=== PATIENT | male | born 1930 | race Caucasian/White ===

== ENCOUNTER 2020-03-08 15:28 | Inpatient (IN) | payer MEDICARE, BC ==
--- NOTE | 2020-03-08 15:59 | EDM.PDOC ---
ED HPI GENERAL MEDICAL PROBLEM - General Chief Complaint: Respiratory Problem Stated Complaint: SHORTNESS OF BREATH/WEAKNESS Time Seen by Provider: 03/08/20 15:30 Source of Information: Reports: Patient, EMS, RN History Limitations: Reports: No Limitations - History of Present Illness INITIAL COMMENTS - FREE TEXT/NARRATIVE: 89 year old male presents to the emergency room brought in by his niece for evaluation of generalized weakness, mild shortness of breath, possible dehydration. Patient has been poor fluid intake over the last 48 hours and has developed increasing weakness. 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 He has been recovering at home with family in [place]. Currently denies fever or chill, cough, chest pain, palpations, abdominal pain. He denies any current nausea or vomiting. His O2 saturation was 88% on room air upon arrival and 2 L of oxygen was placed nasal cannulae and he increased nicely up to 94%. He has not been diaphoretic. Onset: Gradual Duration: Day(s):, Getting Worse Location: Reports: Generalized Quality: Reports: Dull Severity: Moderate Improves with: Reports: Rest Worsens with: Reports: Movement Associated Symptoms: Reports: Shortness of Breath. Denies: Confusion, Chest Pain, Diaphoresis, Fever/Chills, Headaches, Nausea/Vomiting Right Knee Pain Score (Numeric/FACES): 7 - Related Data Allergies Allergy/AdvReac Type Severity Reaction Status Date / Time No Known Allergies Allergy Verified 03/08/20 15:55 Home Meds: Home Meds Albuterol/Ipratropium [Combivent Respimat] 1 puff INH DAILY PRN 11/27/13 [History] Aspirin 81 mg PO DAILY 11/27/13 [History] B2/Vits A,C,E/Lut/Zeaxanth/Min [Icaps] 1 tab PO BID 11/27/13 [History] Fluticasone Propionate [Flovent] 2 sprays NASBOTH DAILY 11/27/13 [History] Furosemide [Lasix] 80 mg PO ASDIRECTED 11/27/13 [History] Lisinopril 40 mg PO DAILY 11/27/13 [History] Fluticasone/Salmeterol [Advair HFA 230-21 MCG] 2 puff INH BID 06/20/18 [History] allopurinoL [Zyloprim] 200 mg PO DAILY 06/20/18 [History] Albuterol/Ipratropium [Combivent Respimat] 20 - 100 mcg IH QID PRN 03/08/20 [History] Clopidogrel Bisulfate [Plavix] 75 mg PO DAILY 03/08/20 [History] Docusate Sodium [Colace] 100 mg PO ASDIRECTED PRN 03/08/20 [History] Rosuvastatin [Crestor] 10 mg PO DAILY 03/08/20 [History] amLODIPine Besylate [Norvasc] 10 mg PO DAILY 03/08/20 [History] polyethylene glycoL 3350 [MiraLAX] 17 gm PO DAILY PRN 03/08/20 [History] traMADol [Ultram] 50 mg PO TID PRN 03/08/20 [History] Past Medical History HEENT History: Reports: Cataract Other HEENT History: glasses, upper and lower dentures Cardiovascular History: Reports: Heart Murmur, High Cholesterol, Hypertension Respiratory History: Reports: Asthma (severity depends on pollen count), COPD, Sleep Apnea (uses CPAP), SOB Gastrointestinal History: Reports: Colon Polyp Genitourinary History: Reports: Chronic Renal Insuffiency Musculoskeletal History: Reports: Osteoarthritis Neurological History: Reports: None Psychiatric History: Reports: None Endocrine/Metabolic History: Reports: Diabetes, Type II, Obesity/BMI 30+ (BMI 42.3) Hematologic History: Reports: None Immunologic History: Reports: None Oncologic (Cancer) History: Reports: None Dermatologic History: Reports: None - Infectious Disease History Infectious Disease History: Reports: Chicken Pox, Mumps - Past Surgical History Head Surgeries/Procedures: Reports: None HEENT Surgical History: Reports: Eye Surgery, Naso-Sinus Surgery, Oral Surgery GI Surgical History: Reports: Colonoscopy Oncologic Surgical History: Reports: None Dermatological Surgical History: Reports: None Social & Family History - Family History Family Medical History: No Pertinent Family History - Caffeine Use Caffeine Use: Reports: Coffee - Living Situation & Occupation Living situation: Reports: Alone Occupation: Retired [employer] GENERAL - Review of Systems Review Of Systems: See Below Constitutional: Reports: Weakness, Fatigue. Denies: Fever, Chills, Diaphoresis Respiratory: Reports: Shortness of Breath. Denies: Wheezing, Cough, Sputum Cardiovascular: Reports: Blood Pressure Problem, Dyspnea on Exertion. Denies: Chest Pain, PND, Syncope Endocrine: Reports: High Glucose GI/Abdominal: Denies: Abdominal Pain, Distension, Nausea, Vomiting : Denies: Discharge, Dysuria, Flank Pain, Hematuria Musculoskeletal: Reports: No Symptoms Skin: Denies: Cyanosis, Bruising, Pruritis, Rash Neurological: Denies: Confusion, Dizziness, Headache, Numbness, Paresthesia, Pre-Existing Deficit, Trouble Speaking, Change in Speech Psychiatric: Reports: No Symptoms Hematologic/Lymphatic: Reports: Anemia, Easy Bleeding Immunologic: Reports: No Symptoms ED EXAM, GENERAL - Physical Exam Exam: See Below Exam Limited By: No Limitations General Appearance: Alert, No Apparent Distress, Obese Eye Exam: Bilateral Eye: EOMI Ears: Hearing Grossly Normal Nose: Normal Inspection Throat/Mouth: Normal Inspection, Normal Voice, No Airway Compromise, Other (DENTURES) Head: Atraumatic, Normocephalic Neck: Normal Inspection, Supple, Non-Tender. No: Lymphadenopathy (L), Lymphadenopathy (R) Respiratory/Chest: Lungs Clear, Decreased Breath Sounds. No: Crackles, Rales, Wheezing, Accessory Muscle Use Cardiovascular: Normal Peripheral Pulses, Regular Rate, Rhythm, No Edema, No JVD Peripheral Pulses: 1+: Carotid (L), Carotid (R), Radial (L), Radial (R), Dorsalis Pedis (L), Dorsalis Pedis (R) GI/Abdominal: Soft, Non-Tender, No Organomegaly, No Distention. No: Guarding, Rigid, Rebound Back Exam: Normal Inspection, Full Range of Motion Extremities: Normal Inspection, Normal Range of Motion, No Pedal Edema Neurological: Alert, Oriented, No Motor/Sensory Deficits Psychiatric: Normal Affect, Normal Mood Skin Exam: Warm, Dry, Intact, Normal Color, No Rash #1 Interpretation EKG Date: 03/08/20 Rhythm: Other (Accerlerated junctional rhythm) [place]: Normal P-Wave: Present QRS: LBBB (Incomplete) ST-T: Normal QT: Normal Comparison: NA - No Prior EKG EKG Interpretation Comments: Accelerated junctional rhythm Incomplete left bundle branch block Normal QRS T angle, consider primary T wave abnormality Normal ECG Course - Vital Signs Last Recorded V/S: Last Vital Signs Temp 98.5 F 03/08/20 17:11 Pulse 63 03/08/20 17:11 Resp 16 03/08/20 17:11 BP 96/45 L 03/08/20 17:11 Pulse Ox 96 11/28/20 17:11 - Orders/Labs/Meds Orders: Active Orders 24 hr Category Date Time Status EKG Documentation Completion [RC] ASDIRECTED Care 03/08/20 16:00 Active Sodium Chloride 0.9% [Normal Saline] 1,000 ml Med 03/08/20 17:15 Active IV ASDIRECTED Isolation [COMM] Routine Oth 03/08/20 15:43 Ordered EKG 12 Lead [EK] Stat Ther 03/08/20 16:00 Ordered Medication Orders Sodium Chloride (Normal Saline) 1,000 mls @ 250 mls/hr IV ASDIRECTED ROCCO Last Admin: 03/08/20 17:12 Dose: 250 mls/hr Documented by: BILL Labs: Laboratory Tests 03/08/20 03/08/20 03/08/20 Range/Units 16:02 16:03 16:03 WBC 5.91 (5.00-10.00) 10^3/uL RBC 2.99 L (4.50-6.00) 10^6/uL Hgb 9.1 L (13.0-17.0) g/dL Hct 28.3 L (40.0-52.0) % MCV 94.6 H D (82.0-92.0) fL MCH 30.4 (27.0-31.0) pg MCHC 32.2 (32.0-36.0) g/dL RDW 14.8 H (11.5-14.5) % Plt Count 192 (150-400) 10^3/uL MPV 9.4 (7.4-10.4) fL Immature Gran % (Auto) 0.2 (0.0-5.0) % Neut % (Auto) 77.4 H (50.0-70.0) % Lymph % (Auto) 15.4 L (20.0-40.0) % [place] % (Auto) 6.8 (2.0-8.0) % Eos % (Auto) 0.0 L (1.0-3.0) % Baso % (Auto) 0.2 (0.0-1.0) % Neut # (Auto) 4.58 (2.50-7.00) 10^3/uL Lymph # (Auto) 0.91 L (1.00-4.00) 10^3/uL [place] # (Auto) 0.40 (0.10-0.80) 10^3/uL Eos # (Auto) 0.00 L (0.10-0.30) 10^3/uL Baso # (Auto) 0.01 (0.00-0.10) 10^3/uL Immature Gran # (Auto) 0.01 (0.00-0.50) 10^3/uL D-Dimer, Quantitative > 5000 H (<400) ng/mL Sodium (136-145) mmol/L Potassium (3.3-5.3) mmol/L Chloride (98-115) mmol/L Carbon Dioxide (21.0-32.0) mmol/L Anion Gap (5-15) mmol/L BUN (6-25) mg/dL Creatinine (0.51-1.17) mg/dL Est Cr Clr Drug Dosing mL/min Estimated GFR (MDRD) mL/min Glucose (75 - 99) mg/dL Lactic Acid (0.4-2.0) mmol/L Calcium (8.7-10.3) mg/dL Total Bilirubin (0.2-1.0) mg/dL AST (15-37) U/L ALT (12-78) U/L Alkaline Phosphatase (46-116) IU/L Troponin I (0.00-0.070) ng/mL B-Natriuretic Peptide (0-100) pg/mL Total Protein (6.4-8.2) g/dL Albumin (3.00-4.80) g/dL Specimen Type Urine Color (YELLOW) Urine Appearance (CLEAR) Urine pH (5.0-9.0) Ur Specific [place] (1.005-1.030) Urine Protein (NEGATIVE) mg/dL Urine Glucose (UA) (NEGATIVE) mg/dL Urine Ketones (NEGATIVE) mg/dL Urine Occult Blood (NEGATIVE) Urine Nitrite (NEGATIVE) Urine Bilirubin (NEGATIVE) Urine Urobilinogen (0.2-1.0) E.U./dL Ur Leukocyte Esterase (NEGATIVE) U Hyaline Cast (Auto) Urine RBC (0-5) /HPF Urine WBC (0-5) /HPF Amorphous Sediment (0/HPF) /HPF Urine Bacteria (NONE TO FEW) /HPF Urine Mucus (NEGATIVE) /LPF SARS CoV-2 RNA Rapid VASYL Negative (NEGATIVE) 03/08/20 03/08/20 03/08/20 Range/Units 16:03 16:03 16:03 WBC (5.00-10.00) 10^3/uL RBC (4.50-6.00) 10^6/uL Hgb (13.0-17.0) g/dL Hct (40.0-52.0) % MCV (82.0-92.0) fL MCH (27.0-31.0) pg MCHC (32.0-36.0) g/dL RDW (11.5-14.5) % Plt Count (150-400) 10^3/uL MPV (7.4-10.4) fL Immature Gran % (Auto) (0.0-5.0) % Neut % (Auto) (50.0-70.0) % Lymph % (Auto) (20.0-40.0) % [place] % (Auto) (2.0-8.0) % Eos % (Auto) (1.0-3.0) % Baso % (Auto) (0.0-1.0) % Neut # (Auto) (2.50-7.00) 10^3/uL Lymph # (Auto) (1.00-4.00) 10^3/uL [place] # (Auto) (0.10-0.80) 10^3/uL Eos # (Auto) (0.10-0.30) 10^3/uL Baso # (Auto) (0.00-0.10) 10^3/uL Immature Gran # (Auto) (0.00-0.50) 10^3/uL D-Dimer, Quantitative (<400) ng/mL Sodium 141 (136-145) mmol/L Potassium 4.0 (3.3-5.3) mmol/L Chloride 106 (98-115) mmol/L Carbon Dioxide 20.7 L (21.0-32.0) mmol/L Anion Gap 18.3 H (5-15) mmol/L BUN 54 H* (6-25) mg/dL Creatinine 1.71 H (0.51-1.17) mg/dL Est Cr Clr Drug Dosing 28.33 mL/min Estimated GFR (MDRD) 38 mL/min Glucose 117 H (75 - 99) mg/dL Lactic Acid 0.9 (0.4-2.0) mmol/L Calcium 7.7 L (8.7-10.3) mg/dL Total Bilirubin 0.5 (0.2-1.0) mg/dL AST 41 H (15-37) U/L ALT 24 (12-78) U/L Alkaline Phosphatase 69 (46-116) IU/L Troponin I 0.11 H* (0.00-0.070) ng/mL B-Natriuretic Peptide (0-100) pg/mL Total Protein 5.8 L (6.4-8.2) g/dL Albumin 2.70 L (3.00-4.80) g/dL Specimen Type Urine Color (YELLOW) Urine Appearance (CLEAR) Urine pH (5.0-9.0) Ur Specific [place] (1.005-1.030) Urine Protein (NEGATIVE) mg/dL Urine Glucose (UA) (NEGATIVE) mg/dL Urine Ketones (NEGATIVE) mg/dL Urine Occult Blood (NEGATIVE) Urine Nitrite (NEGATIVE) Urine Bilirubin (NEGATIVE) Urine Urobilinogen (0.2-1.0) E.U./dL Ur Leukocyte Esterase (NEGATIVE) U Hyaline Cast (Auto) Urine RBC (0-5) /HPF Urine WBC (0-5) /HPF Amorphous Sediment (0/HPF) /HPF Urine Bacteria (NONE TO FEW) /HPF Urine Mucus (NEGATIVE) /LPF SARS CoV-2 RNA Rapid VASYL (NEGATIVE) 03/08/20 03/08/20 Range/Units 16:03 16:45 WBC (5.00-10.00) 10^3/uL RBC (4.50-6.00) 10^6/uL Hgb (13.0-17.0) g/dL Hct (40.0-52.0) % MCV (82.0-92.0) fL MCH (27.0-31.0) pg MCHC (32.0-36.0) g/dL RDW (11.5-14.5) % Plt Count (150-400) 10^3/uL MPV (7.4-10.4) fL Immature Gran % (Auto) (0.0-5.0) % Neut % (Auto) (50.0-70.0) % Lymph % (Auto) (20.0-40.0) % [place] % (Auto) (2.0-8.0) % Eos % (Auto) (1.0-3.0) % Baso % (Auto) (0.0-1.0) % Neut # (Auto) (2.50-7.00) 10^3/uL Lymph # (Auto) (1.00-4.00) 10^3/uL [place] # (Auto) (0.10-0.80) 10^3/uL Eos # (Auto) (0.10-0.30) 10^3/uL Baso # (Auto) (0.00-0.10) 10^3/uL Immature Gran # (Auto) (0.00-0.50) 10^3/uL D-Dimer, Quantitative (<400) ng/mL Sodium (136-145) mmol/L Potassium (3.3-5.3) mmol/L Chloride (98-115) mmol/L Carbon Dioxide (21.0-32.0) mmol/L Anion Gap (5-15) mmol/L BUN (6-25) mg/dL Creatinine (0.51-1.17) mg/dL Est Cr Clr Drug Dosing mL/min Estimated GFR (MDRD) mL/min Glucose (75 - 99) mg/dL Lactic Acid (0.4-2.0) mmol/L Calcium (8.7-10.3) mg/dL Total Bilirubin (0.2-1.0) mg/dL AST (15-37) U/L ALT (12-78) U/L Alkaline Phosphatase (46-116) IU/L Troponin I (0.00-0.070) ng/mL B-Natriuretic Peptide 78 (0-100) pg/mL Total Protein (6.4-8.2) g/dL Albumin (3.00-4.80) g/dL Specimen Type Urincc Urine Color Yellow (YELLOW) Urine Appearance Slightly cloudy H (CLEAR) Urine pH 5.5 (5.0-9.0) Ur Specific [place] 1.015 (1.005-1.030) Urine Protein 30 H (NEGATIVE) mg/dL Urine Glucose (UA) Negative (NEGATIVE) mg/dL Urine Ketones Negative (NEGATIVE) mg/dL Urine Occult Blood Negative (NEGATIVE) Urine Nitrite Negative (NEGATIVE) Urine Bilirubin Negative (NEGATIVE) Urine Urobilinogen 0.2 (0.2-1.0) E.U./dL Ur Leukocyte Esterase Small H (NEGATIVE) U Hyaline Cast (Auto) Few Urine RBC 0-5 (0-5) /HPF Urine WBC 10-20 H (0-5) /HPF Amorphous Sediment Few (0/HPF) /HPF Urine Bacteria Occasional (NONE TO FEW) /HPF Urine Mucus Few H (NEGATIVE) /LPF SARS CoV-2 RNA Rapid VASYL (NEGATIVE) Meds: Medications Generic Name Dose Route Start Last Admin Trade Name Freq PRN Reason Stop Dose Admin Sodium Chloride 1,000 mls @ 250 mls/hr 03/08/20 17:15 03/08/20 17:12 Normal Saline IV 250 mls/hr ASDIRECTED ROCCO Administration Discontinued Medications Generic Name Dose Route Start Last Admin Trade Name Freq PRN Reason Stop Dose Admin Aspirin 324 mg 03/08/20 16:49 03/08/20 16:50 Aspirin PO 03/08/20 16:50 324 mg ONETIME ONE Administration Aspirin Confirm 03/08/20 16:50 03/08/20 17:10 Aspirin Administered 03/08/20 16:51 Not Given Dose 324 mg .ROUTE .STK-MED ONE - Re-Assessments/Exams Free Text/Narrative Re-Assessment/Exam: 03/08/20 17:37 1 L normal saline running patient is comfortable. Continues to deny any chest pain. Shortness of breath is improved with his O2 at 2liters of oxygen. 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, JAKE (acute kidney injury) COPD (chronic obstructive pulmonary disease) Qualifiers: COPD type: unspecified COPD Qualified Code(s): J44.9 - Chronic obstructive pulmonary disease, unspecified - Discharge Information Referrals: Sophia Engel MD [Primary Care Provider] - Forms: ED Department Discharge Sepsis Event Note (ED) - Evaluation Sepsis Screening Result: No Definite Risk - Focused Exam Vital Signs: Vital Signs Temp Pulse Resp BP Pulse Ox 03/08/20 17:11 98.5 F 63 16 96/45 L 96 03/08/20 16:11 71 95/44 L 03/08/20 16:05 72 20 88/50 L 96 03/08/20 15:49 99.3 F 74 20 99/40 L 98 - My Orders Last 24 Hours: My Active Orders 03/08/20 15:43 Isolation [COMM] Routine 03/08/20 16:00 EKG Documentation Completion [RC] ASDIRECTED EKG 12 Lead [EK] Stat 03/08/20 17:15 Sodium Chloride 0.9% [Normal Saline] 1,000 ml IV ASDIRECTED - Assessment/Plan Last 24 Hours: My Active Orders 03/08/20 15:43 Isolation [COMM] Routine 03/08/20 16:00 EKG Documentation Completion [RC] ASDIRECTED EKG 12 Lead [EK] Stat 03/08/20 17:15 Sodium Chloride 0.9% [Normal Saline] 1,000 ml IV ASDIRECTED Assessment:: Elevated troponin Dehydration Generalized weakness S/p TAVR JAKE COPD Plan: 1. We will admit on telemetry and run serial troponins. Repeat troponin x2 every 4 hours and if no elevation morning a.m. troponin. 2. We will continue with IV fluid resuscitation. 3. I have discussed this with Dr. oSphia Salcedo and she is in agreement with admission.
--- NOTE | 2020-03-08 16:12 | CR ---
[id number] RAD/RAD Chest PA or AP 1V EXAM: RAD Chest PA or AP 1V INDICATION: SHORTNESS OF BREATH. COMPARISON: None. DISCUSSION: Mild cardiomegaly. No vascular congestion. Lungs are clear. No pleural effusion or pneumothorax. IMPRESSION: No acute findings. Bolivar Ramirez MD 03/08/20 1382 Thank you for allowing us to participate in the care of your patient.
[2020-03-08 16:46] LABS: ANION GAP 18.3 mmol/L (5-15)
[2020-03-08] MEDS ORDERED: Aspirin 81 MG Tab.Chew PO ONE (16:49)
[2020-03-08] MEDS ORDERED: Aspirin 81 MG Tab.Chew ONE (16:50)
[2020-03-08] MEDS: Sodium Chloride 0.9% 1,000 ML IV SCH ×2 (17:12→20:18)
[2020-03-08] MEDS ORDERED: Docusate Sodium 100 MG Cap PO PRN (20:24)
[2020-03-08] MEDS ORDERED: Polyethylene Glycol 3350 Powder 17 GM Packet PO PRN (20:24)
[2020-03-08] MEDS ORDERED: traMADol 50 MG Tab PO PRN (20:24)
[2020-03-08] MEDS: Formoterol/Mometasone 200-5 MCG 8.8 GM Inhaler IH SCH (21:36)
[2020-03-08] MEDS: Nystatin Topical Powder 15 GM Bottle TOP SCH (21:39)
[2020-03-08] MEDS ORDERED: Acetaminophen/HYDROcodone 325-10 MG Tab PO SCH (23:00)
[2020-03-09] MEDS ORDERED: Atropine 0.1 MG/ML 10 ML Syringe IVPUSH PRN (01:06)
[2020-03-09] MEDS ORDERED: EPINEPHrine 1:10,000 1 MG/10 ML Syringe IVPUSH PRN (01:06)
[2020-03-09] MEDS ORDERED: Nitroglycerin 0.4 MG Tab.SL SL PRN (01:06)
[2020-03-09] MEDS ORDERED: Lidocaine 2% 100 MG/5 ML Syringe IVPUSH PRN (01:06)
[2020-03-09] MEDS: Formoterol/Mometasone 200-5 MCG 8.8 GM Inhaler IH SCH ×2 (09:12→20:17)
[2020-03-09] MEDS: Fluticasone Propionate Nasal Spray 16 GM Bottle NASBOTH SCH (09:12)
[2020-03-09] MEDS: Nystatin Topical Powder 15 GM Bottle TOP SCH ×2 (09:12→20:17)
[2020-03-09] MEDS: Aspirin 81 MG Tab.EC PO SCH (09:14)
[2020-03-09] MEDS: amLODIPine 5 MG Tab PO SCH (09:14)
[2020-03-09] MEDS: Furosemide 40 MG Tab PO SCH (09:15)
[2020-03-09] MEDS: Clopidogrel 75 MG Tab PO SCH (09:15)
[2020-03-09] MEDS: Allopurinol 100 MG Tab PO SCH (09:15)
[2020-03-09] MEDS: Multivitamins with Minerals/Iron/Folic Acid/Lycopene Tab PO SCH (09:15)
[2020-03-09] MEDS: Lisinopril 20 MG Tab PO SCH (09:15)
[2020-03-09] MEDS: Rosuvastatin 10 MG Tab PO SCH (09:15)
[2020-03-09] MEDS ORDERED: Menthol 7.6 MG Sugar Free Lozenge PO PRN (09:28)
[2020-03-09] MEDS ORDERED: Ondansetron 4 MG Tab.DIS PO PRN (09:46)
[2020-03-09 09:48] LABS: ANION GAP 17.8 mmol/L (5-15)
[2020-03-09] MEDS: Sodium Chloride 0.9% 1,000 ML IV SCH ×2 (09:54→17:56)
[2020-03-09] MEDS: Acetaminophen/HYDROcodone 325-10 MG Tab PO PRN (09:56)
--- NOTE | 2020-03-09 10:58 | PCM.PN ---
- General Info Date of Service: 03/09/20 Admission Dx/Problem (Free Text): Shortness of breath, weakness, dehydration secondary to poor oral intake and diarrhea. - Review of Systems Systems Review Comment:: Zara is seen today on inpatient rounds. He was admitted 03/08/2020 through the ER where he presented via private vehicle for weakness, shortness of breath and possible dehydration. Per ER provider he has had poor oral intake, however, when I spoke to home health nurse on 03/07 she reported his caregiver had been giving him up a gallon of water in a day. Zara has a PMH of OA of the knees and in the process of getting worked up for knee replacement surgery he was noted to have a murmur. 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 He was discharged home in the care of his niece who resides in [place]. He has been staying on the main floor of her home urinating in a bucket in his room in order to minimize trips to the bathroom due to the pain in his knees. He has home health services which include snf, PT and OT. He has been on tramadol, which was unsuccessful for pain control and I recently started him on hydrocodone, which he states does improve his pain. He did have labs drawn on 03/03 due to decreased urine output and was found to have a BUN in the 50's with a creatinine of 1.48. This was repeated on 03/07 and was largely unchanged. Per the patient he had some diarrhea and became weak and had some SOB with exertion. There was concern for dehydration and he was brought to the ER. In the ER he was noted to have a troponin of 0.11 with a stable LBBB on CXR. No chest pain. BUN was elevated at 54 with a creatinine of 1.71. BNP was 54. He was started on normal saline and given 1 L in the ER with a maintenance rate of 75 mL per hour. Repeat troponin was 0.11, then 0.10 and 0.08 this AM, all without any chest pain. Repeat BUN and Creatinine today was 50/1.39, improved. Today when I talk with Zara he states he is feeling better today although feels nauseated after eating, no emesis. He state with his diarrhea he was having 1 loose stool per day for 3 days but it is unclear if this is accurate or not. Nursing reports that it was an assist of 2 to get him from bed to pivot to the chair. When I ask Zara if he feels safe at his niece's home he states "no". When asked if he gets enough foot and water he states "yes". He states that his niece will leave him for hours at a time and he feels he needs more care. He state his niece's "work all day" and so he is not available to help. When I ask him if he would be interested in NH placement he states "yes, I need more help". When I ask him about his knee pain he rates it as a 7-11/18 however it is noted he has not received any pain medication since his admission as he has not requested anything and has not appeared to be in pain. He appears comfortable when I ask him about his pain level and he reports it as the 810. He states he has had no loose stool today. He is denying any SOB. He had a d-dimer checked on admission and it was >5,000 however due to his renal function CT with contrast was not obtained. He initially required O2 as he had a sat of 88% in the ER that responded nicely to 2L via NC. His O2 has been titrated off and he is maintaining O2 sats >90% on RA. - Patient Data Vitals - Most Recent: Last Vital Signs Temp 99.3 F 03/09/20 06:26 Pulse 56 L 03/09/20 09:00 Resp 20 03/09/20 06:26 BP 128/47 L 03/09/20 09:15 Pulse Ox 97 03/09/20 09:00 Weight - Most Recent: 253 lb 12.8 oz I&O - Last 24 Hours: Intake & Output 03/08/20 03/09/20 03/09/20 22:59 06:59 14:59 Intake Total 524 639 Output Total 275 Balance 524 364 Lab Results Last 24 Hours: Laboratory Results - last 24 hr 03/08/20 03/08/20 03/08/20 Range/Units 16:02 16:03 16:03 WBC 5.91 (5.00-10.00) 10^3/uL RBC 2.99 L (4.50-6.00) 10^6/uL Hgb 9.1 L (13.0-17.0) g/dL Hct 28.3 L (40.0-52.0) % MCV 94.6 H D (82.0-92.0) fL MCH 30.4 (27.0-31.0) pg MCHC 32.2 (32.0-36.0) g/dL RDW 14.8 H (11.5-14.5) % Plt Count 192 (150-400) 10^3/uL MPV 9.4 (7.4-10.4) fL Immature Gran % (Auto) 0.2 (0.0-5.0) % Neut % (Auto) 77.4 H (50.0-70.0) % Lymph % (Auto) 15.4 L (20.0-40.0) % [place] % (Auto) 6.8 (2.0-8.0) % Eos % (Auto) 0.0 L (1.0-3.0) % Baso % (Auto) 0.2 (0.0-1.0) % Neut # (Auto) 4.58 (2.50-7.00) 10^3/uL Lymph # (Auto) 0.91 L (1.00-4.00) 10^3/uL [place] # (Auto) 0.40 (0.10-0.80) 10^3/uL Eos # (Auto) 0.00 L (0.10-0.30) 10^3/uL Baso # (Auto) 0.01 (0.00-0.10) 10^3/uL Immature Gran # (Auto) 0.01 (0.00-0.50) 10^3/uL D-Dimer, Quantitative > 5000 H (<400) ng/mL Sodium (136-145) mmol/L Potassium (3.3-5.3) mmol/L Chloride (98-115) mmol/L Carbon Dioxide (21.0-32.0) mmol/L Anion Gap (5-15) mmol/L BUN (6-25) mg/dL Creatinine (0.51-1.17) mg/dL Est Cr Clr Drug Dosing mL/min Estimated GFR (MDRD) mL/min Glucose (75 - 99) mg/dL Lactic Acid (0.4-2.0) mmol/L Calcium (8.7-10.3) mg/dL Total Bilirubin (0.2-1.0) mg/dL AST (15-37) U/L ALT (12-78) U/L Alkaline Phosphatase (46-116) IU/L Troponin I (0.00-0.070) ng/mL B-Natriuretic Peptide (0-100) pg/mL Total Protein (6.4-8.2) g/dL Albumin (3.00-4.80) g/dL Specimen Type Urine Color (YELLOW) Urine Appearance (CLEAR) Urine pH (5.0-9.0) Ur Specific [place] (1.005-1.030) Urine Protein (NEGATIVE) mg/dL Urine Glucose (UA) (NEGATIVE) mg/dL Urine Ketones (NEGATIVE) mg/dL Urine Occult Blood (NEGATIVE) Urine Nitrite (NEGATIVE) Urine Bilirubin (NEGATIVE) Urine Urobilinogen (0.2-1.0) E.U./dL Ur Leukocyte Esterase (NEGATIVE) U Hyaline Cast (Auto) Urine RBC (0-5) /HPF Urine WBC (0-5) /HPF Amorphous Sediment (0/HPF) /HPF Urine Bacteria (NONE TO FEW) /HPF Urine Mucus (NEGATIVE) /LPF SARS CoV-2 RNA Rapid VASYL Negative (NEGATIVE) 03/08/20 03/08/20 03/08/20 Range/Units 16:03 16:03 16:03 WBC (5.00-10.00) 10^3/uL RBC (4.50-6.00) 10^6/uL Hgb (13.0-17.0) g/dL Hct (40.0-52.0) % MCV (82.0-92.0) fL MCH (27.0-31.0) pg MCHC (32.0-36.0) g/dL RDW (11.5-14.5) % Plt Count (150-400) 10^3/uL MPV (7.4-10.4) fL Immature Gran % (Auto) (0.0-5.0) % Neut % (Auto) (50.0-70.0) % Lymph % (Auto) (20.0-40.0) % [place] % (Auto) (2.0-8.0) % Eos % (Auto) (1.0-3.0) % Baso % (Auto) (0.0-1.0) % Neut # (Auto) (2.50-7.00) 10^3/uL Lymph # (Auto) (1.00-4.00) 10^3/uL [place] # (Auto) (0.10-0.80) 10^3/uL Eos # (Auto) (0.10-0.30) 10^3/uL Baso # (Auto) (0.00-0.10) 10^3/uL Immature Gran # (Auto) (0.00-0.50) 10^3/uL D-Dimer, Quantitative (<400) ng/mL Sodium 141 (136-145) mmol/L Potassium 4.0 (3.3-5.3) mmol/L Chloride 106 (98-115) mmol/L Carbon Dioxide 20.7 L (21.0-32.0) mmol/L Anion Gap 18.3 H (5-15) mmol/L BUN 54 H* (6-25) mg/dL Creatinine 1.71 H (0.51-1.17) mg/dL Est Cr Clr Drug Dosing 28.33 mL/min Estimated GFR (MDRD) 38 mL/min Glucose 117 H (75 - 99) mg/dL Lactic Acid 0.9 (0.4-2.0) mmol/L Calcium 7.7 L (8.7-10.3) mg/dL Total Bilirubin 0.5 (0.2-1.0) mg/dL AST 41 H (15-37) U/L ALT 24 (12-78) U/L Alkaline Phosphatase 69 (46-116) IU/L Troponin I 0.11 H* (0.00-0.070) ng/mL B-Natriuretic Peptide (0-100) pg/mL Total Protein 5.8 L (6.4-8.2) g/dL Albumin 2.70 L (3.00-4.80) g/dL Specimen Type Urine Color (YELLOW) Urine Appearance (CLEAR) Urine pH (5.0-9.0) Ur Specific [place] (1.005-1.030) Urine Protein (NEGATIVE) mg/dL Urine Glucose (UA) (NEGATIVE) mg/dL Urine Ketones (NEGATIVE) mg/dL Urine Occult Blood (NEGATIVE) Urine Nitrite (NEGATIVE) Urine Bilirubin (NEGATIVE) Urine Urobilinogen (0.2-1.0) E.U./dL Ur Leukocyte Esterase (NEGATIVE) U Hyaline Cast (Auto) Urine RBC (0-5) /HPF Urine WBC (0-5) /HPF Amorphous Sediment (0/HPF) /HPF Urine Bacteria (NONE TO FEW) /HPF Urine Mucus (NEGATIVE) /LPF SARS CoV-2 RNA Rapid VASYL (NEGATIVE) 03/08/20 03/08/20 03/08/20 Range/Units 16:03 16:45 20:03 WBC (5.00-10.00) 10^3/uL RBC (4.50-6.00) 10^6/uL Hgb (13.0-17.0) g/dL Hct (40.0-52.0) % MCV (82.0-92.0) fL MCH (27.0-31.0) pg MCHC (32.0-36.0) g/dL RDW (11.5-14.5) % Plt Count (150-400) 10^3/uL MPV (7.4-10.4) fL Immature Gran % (Auto) (0.0-5.0) % Neut % (Auto) (50.0-70.0) % Lymph % (Auto) (20.0-40.0) % [place] % (Auto) (2.0-8.0) % Eos % (Auto) (1.0-3.0) % Baso % (Auto) (0.0-1.0) % Neut # (Auto) (2.50-7.00) 10^3/uL Lymph # (Auto) (1.00-4.00) 10^3/uL [place] # (Auto) (0.10-0.80) 10^3/uL Eos # (Auto) (0.10-0.30) 10^3/uL Baso # (Auto) (0.00-0.10) 10^3/uL Immature Gran # (Auto) (0.00-0.50) 10^3/uL D-Dimer, Quantitative (<400) ng/mL Sodium (136-145) mmol/L Potassium (3.3-5.3) mmol/L Chloride (98-115) mmol/L Carbon Dioxide (21.0-32.0) mmol/L Anion Gap (5-15) mmol/L BUN (6-25) mg/dL Creatinine (0.51-1.17) mg/dL Est Cr Clr Drug Dosing mL/min Estimated GFR (MDRD) mL/min Glucose (75 - 99) mg/dL Lactic Acid (0.4-2.0) mmol/L Calcium (8.7-10.3) mg/dL Total Bilirubin (0.2-1.0) mg/dL AST (15-37) U/L ALT (12-78) U/L Alkaline Phosphatase (46-116) IU/L Troponin I 0.11 H* (0.00-0.070) ng/mL B-Natriuretic Peptide 78 (0-100) pg/mL Total Protein (6.4-8.2) g/dL Albumin (3.00-4.80) g/dL Specimen Type Urincc Urine Color Yellow (YELLOW) Urine Appearance Slightly cloudy H (CLEAR) Urine pH 5.5 (5.0-9.0) Ur Specific [place] 1.015 (1.005-1.030) Urine Protein 30 H (NEGATIVE) mg/dL Urine Glucose (UA) Negative (NEGATIVE) mg/dL Urine Ketones Negative (NEGATIVE) mg/dL Urine Occult Blood Negative (NEGATIVE) Urine Nitrite Negative (NEGATIVE) Urine Bilirubin Negative (NEGATIVE) Urine Urobilinogen 0.2 (0.2-1.0) E.U./dL Ur Leukocyte Esterase Small H (NEGATIVE) U Hyaline Cast (Auto) Few Urine RBC 0-5 (0-5) /HPF Urine WBC 10-20 H (0-5) /HPF Amorphous Sediment Few (0/HPF) /HPF Urine Bacteria Occasional (NONE TO FEW) /HPF Urine Mucus Few H (NEGATIVE) /LPF SARS CoV-2 RNA Rapid VASYL (NEGATIVE) 03/09/20 03/09/20 03/09/20 Range/Units 00:06 09:00 09:00 WBC 5.75 (5.00-10.00) 10^3/uL RBC 3.07 L (4.50-6.00) 10^6/uL Hgb 9.4 L (13.0-17.0) g/dL Hct 29.2 L (40.0-52.0) % MCV 95.1 H (82.0-92.0) fL MCH 30.6 (27.0-31.0) pg MCHC 32.2 (32.0-36.0) g/dL RDW 14.9 H (11.5-14.5) % Plt Count 176 (150-400) 10^3/uL MPV 10.0 (7.4-10.4) fL Immature Gran % (Auto) 0.9 (0.0-5.0) % Neut % (Auto) 66.5 (50.0-70.0) % Lymph % (Auto) 25.0 (20.0-40.0) % [place] % (Auto) 7.1 (2.0-8.0) % Eos % (Auto) 0.2 L (1.0-3.0) % Baso % (Auto) 0.3 (0.0-1.0) % Neut # (Auto) 3.82 (2.50-7.00) 10^3/uL Lymph # (Auto) 1.44 (1.00-4.00) 10^3/uL [place] # (Auto) 0.41 (0.10-0.80) 10^3/uL Eos # (Auto) 0.01 L (0.10-0.30) 10^3/uL Baso # (Auto) 0.02 (0.00-0.10) 10^3/uL Immature Gran # (Auto) 0.05 (0.00-0.50) 10^3/uL D-Dimer, Quantitative (<400) ng/mL Sodium 143 (136-145) mmol/L Potassium 4.5 (3.3-5.3) mmol/L Chloride 109 (98-115) mmol/L Carbon Dioxide 20.7 L (21.0-32.0) mmol/L Anion Gap 17.8 H (5-15) mmol/L BUN 50 H (6-25) mg/dL Creatinine 1.39 H (0.51-1.17) mg/dL Est Cr Clr Drug Dosing 34.86 mL/min Estimated GFR (MDRD) 48 mL/min Glucose 114 H (75 - 99) mg/dL Lactic Acid (0.4-2.0) mmol/L Calcium 7.6 L (8.7-10.3) mg/dL Total Bilirubin (0.2-1.0) mg/dL AST (15-37) U/L ALT (12-78) U/L Alkaline Phosphatase (46-116) IU/L Troponin I 0.10 H* 0.08 H* (0.00-0.070) ng/mL B-Natriuretic Peptide (0-100) pg/mL Total Protein (6.4-8.2) g/dL Albumin (3.00-4.80) g/dL Specimen Type Urine Color (YELLOW) Urine Appearance (CLEAR) Urine pH (5.0-9.0) Ur Specific [place] (1.005-1.030) Urine Protein (NEGATIVE) mg/dL Urine Glucose (UA) (NEGATIVE) mg/dL Urine Ketones (NEGATIVE) mg/dL Urine Occult Blood (NEGATIVE) Urine Nitrite (NEGATIVE) Urine Bilirubin (NEGATIVE) Urine Urobilinogen (0.2-1.0) E.U./dL Ur Leukocyte Esterase (NEGATIVE) U Hyaline Cast (Auto) Urine RBC (0-5) /HPF Urine WBC (0-5) /HPF Amorphous Sediment (0/HPF) /HPF Urine Bacteria (NONE TO FEW) /HPF Urine Mucus (NEGATIVE) /LPF SARS CoV-2 RNA Rapid VASYL (NEGATIVE) [place] Results Last 24 Hours: Microbiology 03/08/20 15:55 Influenza Type A Antigen Screen - Final Nasal Aspirate, Left NEGATIVE INFLUENZA A VIRUS AG REFERENCE RANGE: NEGATIVE Influenza Type B Antigen Screen - Final NEGATIVE INFLUENZA B VIRUS AG REFERENCE RANGE: NEGATIVE Med Orders - Current: Current Medications Acetaminophen (Tylenol) 650 mg PO Q4H PRN PRN Reason: Pain (Mild 1-3)/fever Hydrocodone Bitart/Acetaminophen (Spring 325-10 Mg) 1 tab PO Q6HR PRN PRN Reason: Pain (severe 7-10) Last Admin: 03/09/20 09:56 Dose: 1 tab Documented by: Allopurinol (Zyloprim) 200 mg PO DAILY [facility] Last Admin: 03/09/20 09:15 Dose: 200 mg Documented by: Amlodipine Besylate (Norvasc) 10 mg PO DAILY [facility] Last Admin: 03/09/20 09:14 Dose: 10 mg Documented by: Aspirin (Halfprin) 81 mg PO DAILY [facility] Last Admin: 03/09/20 09:14 Dose: 81 mg Documented by: Atropine Sulfate (Atropine 0.1 Mg/Ml) 0.5 - 1 mg IVPUSH ASDIRECTED PRN PRN Reason: Heart. Clopidogrel Bisulfate (Plavix) 75 mg PO DAILY [facility] Last Admin: 03/09/20 09:15 Dose: 75 mg Documented by: Docusate Sodium (Colace) 100 mg PO DAILY PRN PRN Reason: Constipation Enoxaparin Sodium (Lovenox) 40 mg SUBCUT Q12H [facility] Epinephrine HCl (Epinephrine 1:10,000) 1 mg IVPUSH ASDIRECTED PRN PRN Reason: Heart. Fluticasone Propionate (Flonase) 0 gm NASBOTH DAILY [facility] Last Admin: 03/09/20 09:12 Dose: 2 spray Documented by: Furosemide (Lasix) 80 mg PO Q48H [facility] Last Admin: 03/09/20 09:15 Dose: 80 mg Documented by: Sodium Chloride (Normal Saline) 1,000 mls @ 125 mls/hr IV ASDIRECTED [facility] Last Admin: 03/09/20 09:54 Dose: 125 mls/hr Documented by: Lidocaine HCl (Xylocaine 2%) 120 - 180 mg IVPUSH ASDIRECTED PRN PRN Reason: Heart. Lisinopril (Prinivil) 40 mg PO DAILY [facility] Last Admin: 03/09/20 09:15 Dose: 40 mg Documented by: Menthol ([place] Sugar Free) 1 car PO ASDIRECTED PRN PRN Reason: Cough Last Admin: 03/09/20 09:54 Dose: 1 car Documented by: Mometasone Furoate/Formoterol Fumar (Dulera 200-5 Mcg) 2 puff IH BID [facility] Last Admin: 03/09/20 09:12 Dose: 2 puff Documented by: Multivitamins/Minerals (Centrum) 1 tab PO DAILY [facility] Last Admin: 03/09/20 09:15 Dose: 1 tab Documented by: Nitroglycerin (Nitrostat) 0.4 mg SL ASDIRECTED PRN PRN Reason: Heart. Albuterol/Ipratropium [ Combivent Respimat] Inh Own Med 1 puff INH Q4HR PRN PRN Reason: Shortness of Breath Nystatin (Nystop) 0 gm TOP BID [facility] Last Admin: 03/09/20 09:12 Dose: 1 applic Documented by: Ondansetron HCl (Zofran Odt) 4 mg PO Q6H PRN PRN Reason: Nausea/Vomiting Polyethylene Glycol (Miralax) 17 gm PO DAILY PRN PRN Reason: Constipation Rosuvastatin Calcium (Crestor) 10 mg PO DAILY [facility] Last Admin: 03/09/20 09:15 Dose: 10 mg Documented by: Tramadol HCl (Ultram) 50 mg PO TID PRN PRN Reason: Pain Discontinued Medications Hydrocodone Bitart/Acetaminophen (Spring 325-10 Mg) 1 tab PO Q6HR [facility] Aspirin (Aspirin) 324 mg PO ONETIME ONE Stop: 03/08/20 16:50 Last Admin: 03/08/20 16:50 Dose: 324 mg Documented by: Aspirin (Aspirin) Confirm Administered Dose 324 mg .ROUTE .STK-MED ONE Stop: 03/08/20 16:51 Last Admin: 03/08/20 17:10 Dose: Not Given Documented by: - Exam General: Alert, Oriented, Cooperative, No Acute Distress Lungs: Clear to Auscultation, Normal Respiratory Effort Cardiovascular: Regular Rate, Regular Rhythm, Murmurs (2/6 systolic murmur, distant heart tones.) GI/Abdominal Exam: Normal Bowel Sounds, Soft, Non-Tender, No Organomegaly Extremities: Pedal Edema (Top of right foot has edema, KAMRAN stocking in place bilaterally) Sepsis Event Note - Evaluation Sepsis Screening Result: No Definite Risk - Focused Exam Vital Signs: Vital Signs Temp Pulse Resp BP BP Pulse Ox Pulse Ox 03/09/20 09:15 128/47 L 03/09/20 09:14 128/47 L 03/09/20 09:00 56 L 97 03/09/20 06:26 99.3 F 58 L 20 113/43 L 95 03/09/20 02:16 99.2 F 60 22 H 131/34 L 98 03/08/20 23:00 98.4 F 46 L 20 108/58 L 96 - Problem List Review Problem List Initiated/Reviewed/Updated: Yes - My Orders Last 24 Hours: My Active Orders 03/08/20 20:24 Albuterol/Ipratropium [Combivent Respimat] 1 puff INH Q4HR PRN Docusate Sodium [Colace] 100 mg PO DAILY PRN polyethylene glycoL 3350 [MiraLAX] 17 gm PO DAILY PRN traMADol [Ultram] 50 mg PO TID PRN 03/08/20 21:00 Mometasone/Formoterol [Dulera 200-5 MCG] 2 puff IH BID Nystatin [Nystop] 0 gm TOP BID 03/08/20 21:10 Acetaminophen/HYDROcodone [Spring 325-10 MG] 1 tab PO Q6HR PRN 03/09/20 01:06 Atropine [Atropine 0.1 MG/ML] 0.5 - 1 mg IVPUSH ASDIRECTED PRN EPINEPHrine [EPINEPHrine 1:10,000] 1 mg IVPUSH ASDIRECTED PRN Lidocaine 2% [Xylocaine 2%] 120 - 180 mg IVPUSH ASDIRECTED PRN Nitroglycerin [Nitrostat] 0.4 mg SL ASDIRECTED PRN 03/09/20 01:10 Communication Order [RC] 03/09/20 09:00 Aspirin [Halfprin] 81 mg PO DAILY Clopidogrel [Plavix] 75 mg PO DAILY FA/Lycopene/Lut/MV,Ca,Iron,Min [Centrum] 1 tab PO DAILY Fluticasone Propionate [Flonase] 0 gm NASBOTH DAILY Furosemide [Lasix] 80 mg PO Q48H Rosuvastatin [Crestor] 10 mg PO DAILY allopurinoL [Zyloprim] 200 mg PO DAILY amLODIPine [Norvasc] 10 mg PO DAILY lisinopriL [Prinivil] 40 mg PO DAILY 03/09/20 09:28 Menthol [[place] Sugar Free] 1 car PO ASDIRECTED PRN 03/09/20 09:46 Ondansetron [Zofran ODT] 4 mg PO Q6H PRN 03/09/20 11:00 Enoxaparin [Lovenox] 40 mg SUBCUT Q12H 03/10/20 05:11 BMP [BASIC METABOLIC PANEL,BMP] [CHEM] AM CBC WITH AUTO DIFF [HEME] AM 03/11/20 05:11 BMP [BASIC METABOLIC PANEL,BMP] [CHEM] AM CBC WITH AUTO DIFF [HEME] AM - Assessment Assessment:: Admission Diagnoses: Weakness - Has home health with PT/OT - Strong consideration of NH placement per patient request Dehydration - NS will increase today from 75 mL/hr to 125 mL/hr (03/09) and reassess in AM - Daily BMP Acute on chronic CKD, improving with IVF's - IVF's as noted above Deconditioning - Will need ongoing PT either at home with home health or NH placement Shortness of breath with elevated d-dimer - Start enoxaparin 40 mg subcut BID - If renal function improved in AM will get CT PE protocol Elevated troponin - Trending down, no need to follow troponins, likely supply demand mismatch Recent TAVR 02/12/2020 at [facility] - Plavix x total of 3 months per cardiology Nausea - Start ondansetron ODT 4 mg PO q 6 hours PRN (03/09) Chronic Diagnoses: Asthma - Continue albuterol inhaler COPD - Continue Advair - Continue Combivent HTN - Continue amlodipine - Continue lisinopril Obesity DM2, diet controlled Allergic Rhinitis - Continue flonase - Continue ipratropium bromide nasal spray Peripheral edema - Furosemide 40 mg PO daily (he had been on 80 mg PO daily but with dehydration this was decreased to 40 mg on 03/07) Osteoarthritis - Hydrocodone PRN for severe pain Hyperlipidemia - Continue rosuvastatin Anemia of chronic disease
[2020-03-09] MEDS: Enoxaparin 40 MG/0.4 ML Syringe SUBCUT SCH ×2 (11:06→22:12)
[2020-03-09] MEDS: IPRATROPIUM INH PRN (19:09)
[2020-03-09] MEDS: ALBUTEROL INH PRN (19:09)
[2020-03-10] MEDS: Sodium Chloride 0.9% 1,000 ML IV SCH ×3 (01:50→21:48)
[2020-03-10] MEDS: Acetaminophen 325 MG Tab PO PRN ×3 (03:08→22:37)
[2020-03-10] MEDS: IPRATROPIUM INH PRN ×2 (07:51→12:24)
[2020-03-10] MEDS: ALBUTEROL INH PRN ×2 (07:51→12:24)
[2020-03-10] MEDS: Clopidogrel 75 MG Tab PO SCH (08:20)
[2020-03-10] MEDS: Allopurinol 100 MG Tab PO SCH (08:20)
[2020-03-10] MEDS: Multivitamins with Minerals/Iron/Folic Acid/Lycopene Tab PO SCH (08:21)
[2020-03-10] MEDS: Fluticasone Propionate Nasal Spray 16 GM Bottle NASBOTH SCH (08:21)
[2020-03-10] MEDS: Rosuvastatin 10 MG Tab PO SCH (08:21)
[2020-03-10] MEDS: Aspirin 81 MG Tab.EC PO SCH (08:21)
[2020-03-10] MEDS: Nystatin Topical Powder 15 GM Bottle TOP SCH ×2 (08:22→20:18)
[2020-03-10] MEDS: amLODIPine 5 MG Tab PO SCH (08:23)
[2020-03-10] MEDS: Lisinopril 20 MG Tab PO SCH (08:23)
--- NOTE | 2020-03-10 09:14 | PCM.PN ---
- General Info Date of Service: 03/10/20 Admission Dx/Problem (Free Text): Shortness of breath, weakness, dehydration secondary to poor oral intake and diarrhea. - Review of Systems Systems Review Comment:: Elodia is seen today on inpatient rounds. He was admitted on 03/08 with weakness, SOB and dehydration with elevated renal indices. He has been on IVF's and today his BUN is down from 50 to 36 and his creatinine down from a high of 1.7 to 1.3 today. He is currently on IVF's at 125 mL per hour. Overnight (03/09-03/10) he spiked a temp to 102. Blood cultures were drawn. Of note upon admission UA was negative for UTI. WBC is normal at 4.4 with no left shift. He is afebrile this morning. Today as his renal function has improved I am going to get a CT PE protocol as he had a d-dimer >5,000 upon admission. He is currently on enoxaparin 40 mg subcut BID until results are known. He is at risk for DVT given recent surgery and his relative immobility. He is a heavy assist of 2 for pivot transfers and has not been ambulatory while in the hospital. PT consultation has been placed as he would very likely benefit from NH placement. 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 He voices that it is very hard to get around at home and he feels he needs more help and would be willing to go to the NH. He states he'd prefer [facility] in [place]. He had some nausea yesterday and that is better today. He had a large BM this morning that was soft but not a liquid stool. - Patient Data Vitals - Most Recent: Last Vital Signs Temp 98.4 F 03/10/20 06:11 Pulse 57 L 03/10/20 06:11 Resp 20 03/10/20 06:11 BP 117/57 L 03/10/20 08:23 Pulse Ox 95 03/10/20 06:11 Weight - Most Recent: 253 lb 6.4 oz I&O - Last 24 Hours: Intake & Output 03/09/20 03/10/20 03/10/20 22:59 06:59 14:59 Intake Total 1450 940 Output Total 950 500 Balance 500 440 Lab Results Last 24 Hours: Laboratory Results - last 24 hr 03/09/20 03/09/20 Range/Units 09:00 09:00 WBC 5.75 (5.00-10.00) 10^3/uL RBC 3.07 L (4.50-6.00) 10^6/uL Hgb 9.4 L (13.0-17.0) g/dL Hct 29.2 L (40.0-52.0) % MCV 95.1 H (82.0-92.0) fL MCH 30.6 (27.0-31.0) pg MCHC 32.2 (32.0-36.0) g/dL RDW 14.9 H (11.5-14.5) % Plt Count 176 (150-400) 10^3/uL MPV 10.0 (7.4-10.4) fL Immature Gran % (Auto) 0.9 (0.0-5.0) % Neut % (Auto) 66.5 (50.0-70.0) % Lymph % (Auto) 25.0 (20.0-40.0) % Mcleod % (Auto) 7.1 (2.0-8.0) % Eos % (Auto) 0.2 L (1.0-3.0) % Baso % (Auto) 0.3 (0.0-1.0) % Neut # (Auto) 3.82 (2.50-7.00) 10^3/uL Lymph # (Auto) 1.44 (1.00-4.00) 10^3/uL Mcleod # (Auto) 0.41 (0.10-0.80) 10^3/uL Eos # (Auto) 0.01 L (0.10-0.30) 10^3/uL Baso # (Auto) 0.02 (0.00-0.10) 10^3/uL Immature Gran # (Auto) 0.05 (0.00-0.50) 10^3/uL Sodium 143 (136-145) mmol/L Potassium 4.5 (3.3-5.3) mmol/L Chloride 109 (98-115) mmol/L Carbon Dioxide 20.7 L (21.0-32.0) mmol/L Anion Gap 17.8 H (5-15) mmol/L BUN 50 H (6-25) mg/dL Creatinine 1.39 H (0.51-1.17) mg/dL Est Cr Clr Drug Dosing 34.86 mL/min Estimated GFR (MDRD) 48 mL/min Glucose 114 H (75 - 99) mg/dL Calcium 7.6 L (8.7-10.3) mg/dL Troponin I 0.08 H* (0.00-0.070) ng/mL Med Orders - Current: Current Medications Acetaminophen (Tylenol) 650 mg PO Q4H PRN PRN Reason: Pain (Mild 1-3)/fever Last Admin: 03/10/20 03:08 Dose: 650 mg Documented by: Hydrocodone Bitart/Acetaminophen ([place] 325-10 Mg) 1 tab PO Q6HR PRN PRN Reason: Pain (severe 7-10) Last Admin: 03/09/20 09:56 Dose: 1 tab Documented by: Allopurinol (Zyloprim) 200 mg PO DAILY [facility] Last Admin: 03/10/20 08:20 Dose: 200 mg Documented by: Amlodipine Besylate (Norvasc) 10 mg PO DAILY [facility] Last Admin: 03/10/20 08:23 Dose: 10 mg Documented by: Aspirin (Halfprin) 81 mg PO DAILY [facility] Last Admin: 03/10/20 08:21 Dose: 81 mg Documented by: Atropine Sulfate (Atropine 0.1 Mg/Ml) 0.5 - 1 mg IVPUSH ASDIRECTED PRN PRN Reason: Heart. Clopidogrel Bisulfate (Plavix) 75 mg PO DAILY [facility] Last Admin: 03/10/20 08:20 Dose: 75 mg Documented by: Docusate Sodium (Colace) 100 mg PO DAILY PRN PRN Reason: Constipation Enoxaparin Sodium (Lovenox) 40 mg SUBCUT Q12H [facility] Last Admin: 03/09/20 22:12 Dose: 40 mg Documented by: Epinephrine HCl (Epinephrine 1:10,000) 1 mg IVPUSH ASDIRECTED PRN PRN Reason: Heart. Fluticasone Propionate (Flonase) 0 gm NASBOTH DAILY [facility] Last Admin: 03/10/20 08:21 Dose: 2 spray Documented by: Furosemide (Lasix) 80 mg PO Q48H [facility] Last Admin: 03/09/20 09:15 Dose: 80 mg Documented by: Sodium Chloride (Normal Saline) 1,000 mls @ 125 mls/hr IV ASDIRECTED [facility] Last Admin: 03/10/20 01:50 Dose: 125 mls/hr Documented by: Lidocaine HCl (Xylocaine 2%) 120 - 180 mg IVPUSH ASDIRECTED PRN PRN Reason: Heart. Lisinopril (Prinivil) 40 mg PO DAILY [facility] Last Admin: 03/10/20 08:23 Dose: 40 mg Documented by: Menthol ([place] Sugar Free) 1 car PO ASDIRECTED PRN PRN Reason: Cough Last Admin: 03/09/20 09:54 Dose: 1 car Documented by: Mometasone Furoate/Formoterol Fumar (Dulera 200-5 Mcg) 2 puff IH BID [facility] Last Admin: 03/09/20 20:17 Dose: 2 puff Documented by: Multivitamins/Minerals (Centrum) 1 tab PO DAILY [facility] Last Admin: 03/10/20 08:21 Dose: 1 tab Documented by: Nitroglycerin (Nitrostat) 0.4 mg SL ASDIRECTED PRN PRN Reason: Heart. Albuterol/Ipratropium [ Combivent Respimat] Inh Own Med 1 puff INH Q4HR PRN PRN Reason: Shortness of Breath Last Admin: 03/10/20 07:51 Dose: 1 puff Documented by: Nystatin (Nystop) 0 gm TOP BID [facility] Last Admin: 03/10/20 08:22 Dose: 1 applic Documented by: Ondansetron HCl (Zofran Odt) 4 mg PO Q6H PRN PRN Reason: Nausea/Vomiting Polyethylene Glycol (Miralax) 17 gm PO DAILY PRN PRN Reason: Constipation Rosuvastatin Calcium (Crestor) 10 mg PO DAILY [facility] Last Admin: 03/10/20 08:21 Dose: 10 mg Documented by: Tramadol HCl (Ultram) 50 mg PO TID PRN PRN Reason: Pain Discontinued Medications Hydrocodone Bitart/Acetaminophen ([place] 325-10 Mg) 1 tab PO Q6HR [facility] Aspirin (Aspirin) 324 mg PO ONETIME ONE Stop: 03/08/20 16:50 Last Admin: 03/08/20 16:50 Dose: 324 mg Documented by: Aspirin (Aspirin) Confirm Administered Dose 324 mg .ROUTE .STK-MED ONE Stop: 03/08/20 16:51 Last Admin: 03/08/20 17:10 Dose: Not Given Documented by: - Exam General: Alert, Oriented, Cooperative, No Acute Distress Lungs: Normal Respiratory Effort, Wheezing (Bases bilaterally.) Cardiovascular: Regular Rate, Regular Rhythm, Murmurs GI/Abdominal Exam: Normal Bowel Sounds, Soft, Non-Tender Extremities: No Pedal Edema Sepsis Event Note - Evaluation Sepsis Screening Result: No Definite Risk - Focused Exam Vital Signs: Vital Signs Temp Temp Pulse Resp BP BP Pulse Ox 03/10/20 08:23 117/57 L 03/10/20 06:11 98.4 F 57 L 20 132/45 L 95 03/10/20 03:38 97.2 F 03/10/20 03:08 101.3 F H 03/10/20 03:00 102 F H 74 20 132/59 L 94 L 03/09/20 23:00 99.6 F 76 20 151/33 H 94 L - Problem List Review Problem List Initiated/Reviewed/Updated: Yes - My Orders Last 24 Hours: My Active Orders 03/09/20 09:00 Aspirin [Halfprin] 81 mg PO DAILY Clopidogrel [Plavix] 75 mg PO DAILY FA/Lycopene/Lut/MV,Ca,Iron,Min [Centrum] 1 tab PO DAILY Fluticasone Propionate [Flonase] 0 gm NASBOTH DAILY Furosemide [Lasix] 80 mg PO Q48H Rosuvastatin [Crestor] 10 mg PO DAILY allopurinoL [Zyloprim] 200 mg PO DAILY amLODIPine [Norvasc] 10 mg PO DAILY lisinopriL [Prinivil] 40 mg PO DAILY 03/09/20 09:28 Menthol [[place] Sugar Free] 1 car PO ASDIRECTED PRN 03/09/20 09:46 Ondansetron [Zofran ODT] 4 mg PO Q6H PRN 03/09/20 11:00 Enoxaparin [Lovenox] 40 mg SUBCUT Q12H 03/10/20 03:12 CULTURE BLOOD [BC] Stat CULTURE BLOOD [BC] Stat Blood Culture x2 Reflex Set [OM.PC] Stat 03/10/20 05:11 BMP [BASIC METABOLIC PANEL,BMP] [CHEM] AM CBC WITH AUTO DIFF [HEME] AM 03/10/20 08:44 Chest PE [Ang Chest] [CT] Routine 03/10/20 08:59 PT Evaluation and Treatment [CONS] Routine 03/11/20 05:11 BMP [BASIC METABOLIC PANEL,BMP] [CHEM] AM CBC WITH AUTO DIFF [HEME] AM - Assessment Assessment:: Admission Diagnoses: Weakness - Has home health with PT/OT - Strong consideration of NH placement per patient request - 03/10/2020 PT consultation Dehydration - NS will increase today from 75 mL/hr to 125 mL/hr (03/09) - Daily BMP Acute on chronic CKD, improving with IVF's - IVF's as noted above - Renal indices are improving on labs Deconditioning - Will need ongoing PT either at home with home health or NH placement Shortness of breath with elevated d-dimer - Start enoxaparin 40 mg subcut BID - With improved renal function will get CT PE protocol 03/10 Elevated troponin - Trending down, no need to follow troponins, likely supply demand mismatch Recent TAVR 02/12/[address] [facility] - Plavix x total of 3 months per cardiology Nausea - Start ondansetron ODT 4 mg PO q 6 hours PRN (03/09) Fever - Documented 03/10 at 0300, blood culture x 2 ordered, WBC normal with no le ft shift, no obvious sign of infection - Will start incentive spirometry Chronic Diagnoses: Asthma - Continue albuterol inhaler COPD - Continue Advair - Continue Combivent HTN - Continue amlodipine - Continue lisinopril Obesity DM2, diet controlled Allergic Rhinitis - Continue flonase - Continue ipratropium bromide nasal spray Peripheral edema - Furosemide 40 mg PO daily (he had been on 80 mg PO daily but with dehydration this was decreased to 40 mg on 03/07) Osteoarthritis - Hydrocodone PRN for severe pain Hyperlipidemia - Continue rosuvastatin Anemia of chronic disease
[2020-03-10] MEDS: Formoterol/Mometasone 200-5 MCG 8.8 GM Inhaler IH SCH ×2 (09:51→20:18)
[2020-03-10] MEDS ORDERED: Iopamidol 755 Mg/ML 100 ML Bottle IV ONE (09:52)
[2020-03-10] MEDS ORDERED: Sodium Chloride 0.9% 100 ML IV SCH (10:00)
--- NOTE | 2020-03-10 10:25 | CT ---
[id number] CT/CTA Chest EXAM: CTA Chest CLINICAL DATA: ELEVATED D DIMER. COMPARISON STUDY: None. FINDINGS: Lungs: Small bilateral pleural effusions right greater than left and bibasal atelectasis. Additionally, there is patchy groundglass opacification throughout both lungs, peripheral and lower lobe predominant. Appearance is most consistent with COVID pneumonia. No pneumothorax. Mediastinum: No mediastinal or hilar lymphadenopathy. Heart and great vessels: Cardiomegaly. No pericardial effusion. Prosthetic aortic valve. Coronary artery atherosclerosis. Thoracic aorta atherosclerosis. No aneurysm. Pulmonary arteries are normal in caliber. Negative for pulmonary embolus. Bones: No acute fracture or compression deformity. Spondylosis. Upper abdomen: Unremarkable. IMPRESSION: Negative for pulmonary embolus. COVID pneumonia. Bolivar Ramirez MD 03/10/20 1025 Thank you for allowing us to participate in the care of your patient.
[2020-03-10] MEDS: Enoxaparin 40 MG/0.4 ML Syringe SUBCUT SCH ×2 (10:32→22:37)
[2020-03-10] MEDS: Acetaminophen/HYDROcodone 325-10 MG Tab PO PRN (11:03)
[2020-03-10] MEDS: cefTRIAXone 1 GM Vial IVPUSH SCH (16:34)
[2020-03-10] MEDS: Azithromycin 500 MG in Sodium Chloride 0.9% 250 ML IV SCH (16:37)
[2020-03-11] MEDS: Acetaminophen 325 MG Tab PO PRN ×3 (01:55→14:58)
[2020-03-11] MEDS: Sodium Chloride 0.9% 1,000 ML IV SCH (05:13)
[2020-03-11] MEDS: Fluticasone Propionate Nasal Spray 16 GM Bottle NASBOTH SCH (08:34)
[2020-03-11] MEDS: Formoterol/Mometasone 200-5 MCG 8.8 GM Inhaler IH SCH ×2 (08:37→20:44)
[2020-03-11] MEDS: Furosemide 40 MG Tab PO SCH (08:39)
[2020-03-11] MEDS: Lisinopril 20 MG Tab PO SCH (08:39)
[2020-03-11] MEDS: Aspirin 81 MG Tab.EC PO SCH (08:39)
[2020-03-11] MEDS: Multivitamins with Minerals/Iron/Folic Acid/Lycopene Tab PO SCH (08:40)
[2020-03-11] MEDS: amLODIPine 5 MG Tab PO SCH (08:41)
[2020-03-11] MEDS: Rosuvastatin 10 MG Tab PO SCH (08:41)
[2020-03-11] MEDS: Clopidogrel 75 MG Tab PO SCH (08:41)
[2020-03-11] MEDS: Allopurinol 100 MG Tab PO SCH (08:41)
[2020-03-11] MEDS: Nystatin Topical Powder 15 GM Bottle TOP SCH ×2 (08:48→20:44)
--- NOTE | 2020-03-11 10:05 | PCM.PN ---
- General Info Date of Service: 03/11/20 Admission Dx/Problem (Free Text): Shortness of breath, weakness, dehydration secondary to poor oral intake and diarrhea. - Review of Systems Systems Review Comment:: Zara is seen today on inpatient rounds, he was admitted 03/08 with weakness, dehydration and elevated renal indices. He has been on IVF's at 125 mL per hour with improvement in his renal function. He underwent CT scan of the chest, PE protocol on 03/10 due to elevated d-dimer and he was negative for PE although had bilateral ground glass opacities consistent with a COVID pneumonia. He was screened for COVID prior to admission and was negative on 03/08. He has, h owever, been febrile. He was started on azithromycin 500 mg IV daily and ceftriaxone 1 gram IV daily on 03/10 and was moved to a negative pressure room until we are able to test him for COVID (03/11 at 1300). He overall looks better today than he did yesterday. He states he feels better than when he was admitted. He continues to be weak and require assist of 2 for transfers. His renal function continues to improve and his creatinine has normalized today to 1.09 with a BUN of 23. His chloride is elevated today at 118, sodium is normal at 145. WBC is normal at 4.1 with no left shift. Tmax was 102 on 03/10, he continues to run 99 - 100.5. Acetaminophen does reduce the fever. - Patient Data Vitals - Most Recent: Last Vital Signs Temp 98.7 F 03/11/20 07:05 Pulse 67 03/11/20 06:24 Resp 20 03/11/20 06:24 BP 130/49 L 03/11/20 08:41 Pulse Ox 92 L 03/11/20 06:24 Weight - Most Recent: 268 lb 8 oz I&O - Last 24 Hours: Intake & Output 03/10/20 03/11/20 03/11/20 22:59 06:59 14:59 Intake Total 1153 972 Output Total 200 120 Balance 953 852 Lab Results Last 24 Hours: Laboratory Results - last 24 hr 03/10/20 03/10/20 Range/Units 20:27 20:57 POC Glucose 356 H 380 H (74-100) mg/dL Med Orders - Current: Current Medications Acetaminophen (Tylenol) 650 mg PO Q4H PRN PRN Reason: Pain (Mild 1-3)/fever Last Admin: 03/11/20 06:35 Dose: 650 mg Documented by: Hydrocodone Bitart/Acetaminophen ([place] 325-10 Mg) 1 tab PO Q6HR PRN PRN Reason: Pain (severe 7-10) Last Admin: 03/10/20 11:03 Dose: 1 tab Documented by: Allopurinol (Zyloprim) 200 mg PO DAILY [facility] Last Admin: 03/11/20 08:41 Dose: 200 mg Documented by: Amlodipine Besylate (Norvasc) 10 mg PO DAILY [facility] Last Admin: 03/11/20 08:41 Dose: 10 mg Documented by: Aspirin (Halfprin) 81 mg PO DAILY [facility] Last Admin: 03/11/20 08:39 Dose: 81 mg Documented by: Atropine Sulfate (Atropine 0.1 Mg/Ml) 0.5 - 1 mg IVPUSH ASDIRECTED PRN PRN Reason: Heart. Ceftriaxone Sodium (Rocephin) 1 gm IVPUSH Q24H [facility] Last Admin: 03/10/20 16:34 Dose: 1 gm Documented by: Clopidogrel Bisulfate (Plavix) 75 mg PO DAILY [facility] Last Admin: 03/11/20 08:41 Dose: 75 mg Documented by: Docusate Sodium (Colace) 100 mg PO DAILY PRN PRN Reason: Constipation Enoxaparin Sodium (Lovenox) 40 mg SUBCUT Q12H [facility] Last Admin: 03/10/20 22:37 Dose: 40 mg Documented by: Epinephrine HCl (Epinephrine 1:10,000) 1 mg IVPUSH ASDIRECTED PRN PRN Reason: Heart. Fluticasone Propionate (Flonase) 0 gm NASBOTH DAILY [facility] Last Admin: 03/11/20 08:34 Dose: 2 spray Documented by: Furosemide (Lasix) 80 mg PO Q48H [facility] Last Admin: 03/11/20 08:39 Dose: 80 mg Documented by: Sodium Chloride (Normal Saline) 100 mls @ 200 mls/hr IV ASDIRECTED [facility] Last Admin: 03/10/20 09:45 Dose: 200 mls/hr Documented by: Azithromycin 500 mg/ Sodium (Chloride) 250 mls @ 250 mls/hr IV Q24H [facility] Last Admin: 03/10/20 16:37 Dose: 250 mls/hr Documented by: Lidocaine HCl (Xylocaine 2%) 120 - 180 mg IVPUSH ASDIRECTED PRN PRN Reason: Heart. Lisinopril (Prinivil) 40 mg PO DAILY [facility] Last Admin: 03/11/20 08:39 Dose: 40 mg Documented by: Menthol ([place] Sugar Free) 1 car PO ASDIRECTED PRN PRN Reason: Cough Last Admin: 03/09/20 09:54 Dose: 1 car Documented by: Mometasone Furoate/Formoterol Fumar (Dulera 200-5 Mcg) 2 puff IH BID [facility] Last Admin: 03/11/20 08:37 Dose: 2 puff Documented by: Multivitamins/Minerals (Centrum) 1 tab PO DAILY [facility] Last Admin: 03/11/20 08:40 Dose: 1 tab Documented by: Nitroglycerin (Nitrostat) 0.4 mg SL ASDIRECTED PRN PRN Reason: Heart. Albuterol/Ipratropium [ Combivent Respimat] Inh Own Med 1 puff INH Q4HR PRN PRN Reason: Shortness of Breath Last Admin: 03/10/20 12:24 Dose: 1 puff Documented by: Nystatin (Nystop) 0 gm TOP BID [facility] Last Admin: 03/11/20 08:48 Dose: 1 applic Documented by: Ondansetron HCl (Zofran Odt) 4 mg PO Q6H PRN PRN Reason: Nausea/Vomiting Polyethylene Glycol (Miralax) 17 gm PO DAILY PRN PRN Reason: Constipation Rosuvastatin Calcium (Crestor) 10 mg PO DAILY [facility] Last Admin: 03/11/20 08:41 Dose: 10 mg Documented by: Tramadol HCl (Ultram) 50 mg PO TID PRN PRN Reason: Pain Discontinued Medications Hydrocodone Bitart/Acetaminophen ([place] 325-10 Mg) 1 tab PO Q6HR [facility] Aspirin (Aspirin) 324 mg PO ONETIME ONE Stop: 03/08/20 16:50 Last Admin: 03/08/20 16:50 Dose: 324 mg Documented by: Aspirin (Aspirin) Confirm Administered Dose 324 mg .ROUTE .STK-MED ONE Stop: 03/08/20 16:51 Last Admin: 03/08/20 17:10 Dose: Not Given Documented by: Sodium Chloride (Normal Saline) 1,000 mls @ 125 mls/hr IV ASDIRECTED [facility] Last Admin: 03/11/20 05:13 Dose: 125 mls/hr Documented by: Iopamidol (Isovue-370 (76%)) 100 ml IV ONETIME ONE Stop: 03/10/20 09:53 Last Admin: 03/10/20 09:45 Dose: 100 ml Documented by: - Exam Quality Assessment: Supplemental Oxygen General: Alert, Oriented, Cooperative, No Acute Distress Lungs: Normal Respiratory Effort, Wheezing Cardiovascular: Regular Rate, Regular Rhythm, Murmurs GI/Abdominal Exam: Normal Bowel Sounds Extremities: No Pedal Edema Sepsis Event Note - Evaluation Sepsis Screening Result: No Definite Risk - Focused Exam Vital Signs: Vital Signs Temp Temp Pulse Resp BP BP Pulse Ox 03/11/20 08:41 130/49 L 03/11/20 08:39 130/49 L 03/11/20 07:05 98.7 F 03/11/20 06:35 100.5 F 03/11/20 06:24 100.5 F 67 20 148/53 H 92 L 03/11/20 02:25 100.5 F 03/11/20 01:58 101.4 F H 69 20 139/42 L 94 L 03/11/20 01:55 101.4 F H 03/10/20 23:07 100.3 F 03/10/20 22:37 100.9 F H 03/10/20 22:31 73 20 130/68 95 - Problem List Review Problem List Initiated/Reviewed/Updated: Yes - My Orders Last 24 Hours: My Active Orders 03/10/20 09:27 Incentive Spirometry [RT Incentive Spirometry] [RC] Q2HWA 03/10/20 10:00 Sodium Chloride 0.9% [Normal Saline] 100 ml IV ASDIRECTED 03/10/20 16:30 cefTRIAXone [Rocephin] 1 gm IVPUSH Q24H 03/10/20 17:00 Azithromycin [Zithromax] 500 mg Sodium Chloride 0.9% [Normal Saline] 250 ml IV Q24H 03/11/20 05:11 BMP [BASIC METABOLIC PANEL,BMP] [CHEM] AM CBC WITH AUTO DIFF [HEME] AM 03/11/20 08:27 A1C [GLYCOSYLATED HEMOGLOBIN,HGBA1C] [CHEM] Routine - Assessment Assessment:: Admission Diagnoses: Weakness - Has home health with PT/OT - Strong consideration of NH placement per patient request - 03/10/2020 PT consultation Fever - Documented 03/10 at 0300, blood culture x 2 ordered, WBC normal with no left shift, no obvious sign of infection - Will start incentive spirometry - CT with ground glass opacities bilaterally - Started Azithromycin 500 mg IV daily and ceftriaxone 1 gram IV daily on 03/10 - COVID testing 03/11 Dehydration - NS will increase today from 75 mL/hr to 125 mL/hr (03/09) - Daily BMP - 03/11/2020 D/C IVF's. Acute on chronic CKD, improving with IVF's - IVF's D/C on 03/11 - Renal indices are improving on labs Deconditioning - NH placement Shortness of breath with elevated d-dimer - No evidence of PE on CT PE protocol done 03/10, will change enoxaparin from treatment dose to prophylaxis dose Elevated troponin - Trending down, no need to follow troponins, likely supply demand mismatch Recent TAVR 02/12/[address] [facility] - Plavix x total of 3 months per cardiology Nausea - Start ondansetron ODT 4 mg PO q 6 hours PRN (03/09) Fever - Documented 03/10 at 0300, blood culture x 2 ordered, WBC normal with no left shift, no obvious sign of infection - Will start incentive spirometry Chronic Diagnoses: Asthma - Continue albuterol inhaler COPD - Continue Advair - Continue Combivent HTN - Continue amlodipine - Continue lisinopril Obesity DM2, diet controlled - Will get A1C to have for baseline Allergic Rhinitis - Continue flonase - Continue ipratropium bromide nasal spray Peripheral edema - Furosemide 40 mg PO daily (he had been on 80 mg PO daily but with dehydration this was decreased to 40 mg on 03/07) Osteoarthritis - Hydrocodone PRN for severe pain Hyperlipidemia - Continue rosuvastatin Anemia of chronic disease
[2020-03-11] MEDS: Enoxaparin 40 MG/0.4 ML Syringe SUBCUT SCH (10:19)
[2020-03-11] MEDS: cefTRIAXone 1 GM Vial IVPUSH SCH (16:08)
[2020-03-11] MEDS: Azithromycin 500 MG in Sodium Chloride 0.9% 250 ML IV SCH (16:10)
[2020-03-11] MEDS ORDERED: Ibuprofen 600 MG Tab PO ONE (17:31)
[2020-03-12] MEDS: Acetaminophen 325 MG Tab PO PRN ×3 (03:15→19:23)
[2020-03-12] MEDS ORDERED: Piperacillin/Tazobactam 3.375 GM in Sodium Chloride 0.9% 100 ML IV SCH (09:00)
[2020-03-12] MEDS: Aspirin 81 MG Tab.EC PO SCH (09:47)
[2020-03-12] MEDS: Lisinopril 20 MG Tab PO SCH (09:47)
[2020-03-12] MEDS: Multivitamins with Minerals/Iron/Folic Acid/Lycopene Tab PO SCH (09:47)
--- NOTE | 2020-03-12 09:47 | PCM.PN ---
- General Info Date of Service: 03/12/20 Admission Dx/Problem (Free Text): Shortness of breath, weakness, dehydration secondary to poor oral intake and diarrhea. - Review of Systems Systems Review Comment:: Zara is seen today on inpatient rounds. He continues to have a temp in the low 100's that really doesn't seem to decrease with Tylenol or ibuprofen. He states in the AM when he has a fever he is chilled but not the rest of the day. He states his appetite is good, he reports feeling a little short of breath. He has had COVID testing x 2 (rapid) that have been negative. CT of the chest did show patchy bilateral infiltrates and so he was started on azithromycin and ceftriaxone on 03/10 but fevers persist. He has had no N/V/D. UA was negative for infection. Blood cultures negative to date and were redrawn on 03/11 due to persistent fever. - Patient Data Vitals - Most Recent: Last Vital Signs Temp 100.3 F 03/12/20 06:08 Pulse 69 03/12/20 06:08 Resp 24 H 03/12/20 06:08 BP 128/50 L 03/12/20 06:08 Pulse Ox 95 03/12/20 06:08 Weight - Most Recent: 252 lb 12.8 oz I&O - Last 24 Hours: Intake & Output 03/11/20 03/12/20 03/12/20 22:59 06:59 14:59 Intake Total 440 100 Balance 440 100 Lab Results Last 24 Hours: Laboratory Results - last 24 hr 03/11/20 03/12/20 03/12/20 Range/Units 11:19 08:00 08:00 WBC 5.81 (5.00-10.00) 10^3/uL RBC 3.01 L (4.50-6.00) 10^6/uL Hgb 9.1 L (13.0-17.0) g/dL Hct 28.5 L (40.0-52.0) % MCV 94.7 H (82.0-92.0) fL MCH 30.2 (27.0-31.0) pg MCHC 31.9 L (32.0-36.0) g/dL RDW 14.8 H (11.5-14.5) % Plt Count 212 (150-400) 10^3/uL MPV 10.5 H (7.4-10.4) fL Immature Gran % (Auto) 1.4 (0.0-5.0) % Neut % (Auto) 77.9 H (50.0-70.0) % Lymph % (Auto) 16.2 L (20.0-40.0) % Marshall % (Auto) 4.5 (2.0-8.0) % Eos % (Auto) 0.0 L (1.0-3.0) % Baso % (Auto) 0.0 (0.0-1.0) % Neut # (Auto) 4.53 (2.50-7.00) 10^3/uL Lymph # (Auto) 0.94 L (1.00-4.00) 10^3/uL Marshall # (Auto) 0.26 (0.10-0.80) 10^3/uL Eos # (Auto) 0.00 L (0.10-0.30) 10^3/uL Baso # (Auto) 0.00 (0.00-0.10) 10^3/uL Immature Gran # (Auto) 0.08 (0.00-0.50) 10^3/uL Sodium 146 H (136-145) mmol/L Potassium 3.9 (3.3-5.3) mmol/L Chloride 111 (98-115) mmol/L Carbon Dioxide 24.9 (21.0-32.0) mmol/L Anion Gap 14.0 (5-15) mmol/L BUN 22 D (6-25) mg/dL Creatinine 1.19 H (0.51-1.17) mg/dL Est Cr Clr Drug Dosing 40.71 mL/min Estimated GFR (MDRD) 58 mL/min Glucose 108 H (75 - 99) mg/dL Lactic Acid (0.4-2.0) mmol/L Calcium 8.1 L (8.7-10.3) mg/dL SARS CoV-2 RNA Rapid VASYL Negative (NEGATIVE) 03/12/20 Range/Units 08:00 WBC (5.00-10.00) 10^3/uL RBC (4.50-6.00) 10^6/uL Hgb (13.0-17.0) g/dL Hct (40.0-52.0) % MCV (82.0-92.0) fL MCH (27.0-31.0) pg MCHC (32.0-36.0) g/dL RDW (11.5-14.5) % Plt Count (150-400) 10^3/uL MPV (7.4-10.4) fL Immature Gran % (Auto) (0.0-5.0) % Neut % (Auto) (50.0-70.0) % Lymph % (Auto) (20.0-40.0) % Marshall % (Auto) (2.0-8.0) % Eos % (Auto) (1.0-3.0) % Baso % (Auto) (0.0-1.0) % Neut # (Auto) (2.50-7.00) 10^3/uL Lymph # (Auto) (1.00-4.00) 10^3/uL Marshall # (Auto) (0.10-0.80) 10^3/uL Eos # (Auto) (0.10-0.30) 10^3/uL Baso # (Auto) (0.00-0.10) 10^3/uL Immature Gran # (Auto) (0.00-0.50) 10^3/uL Sodium (136-145) mmol/L Potassium (3.3-5.3) mmol/L Chloride (98-115) mmol/L Carbon Dioxide (21.0-32.0) mmol/L Anion Gap (5-15) mmol/L BUN (6-25) mg/dL Creatinine (0.51-1.17) mg/dL Est Cr Clr Drug Dosing mL/min Estimated GFR (MDRD) mL/min Glucose (75 - 99) mg/dL Lactic Acid 1.1 (0.4-2.0) mmol/L Calcium (8.7-10.3) mg/dL SARS CoV-2 RNA Rapid VASYL (NEGATIVE) Donell Results Last 24 Hours: Microbiology 03/10/20 04:00 Aerobic Blood Culture - Preliminary Blood - Venous - Lab Draw NO GROWTH AFTER 1 DAY Anaerobic Blood Culture - Preliminary NO GROWTH AFTER 1 DAY 03/10/20 03:45 Aerobic Blood Culture - Preliminary Blood - Venous NO GROWTH AFTER 1 DAY Anaerobic Blood Culture - Preliminary NO GROWTH AFTER 1 DAY 03/11/20 18:25 Anaerobic Blood Culture - Final Blood - Venous - Lab Draw 03/11/20 18:10 Anaerobic Blood Culture - Final Blood - Venous Med Orders - Current: Current Medications Acetaminophen (Tylenol) 650 mg PO Q4H PRN PRN Reason: Pain (Mild 1-3)/fever Last Admin: 03/12/20 03:15 Dose: 650 mg Documented by: Hydrocodone Bitart/Acetaminophen ([place] 325-10 Mg) 1 tab PO Q6HR PRN PRN Reason: Pain (severe 7-10) Last Admin: 03/10/20 11:03 Dose: 1 tab Documented by: Allopurinol (Zyloprim) 200 mg PO DAILY [facility] Last Admin: 03/11/20 08:41 Dose: 200 mg Documented by: Amlodipine Besylate (Norvasc) 10 mg PO DAILY [facility] Last Admin: 03/11/20 08:41 Dose: 10 mg Documented by: Aspirin (Halfprin) 81 mg PO DAILY [facility] Last Admin: 03/11/20 08:39 Dose: 81 mg Documented by: Clopidogrel Bisulfate (Plavix) 75 mg PO DAILY [facility] Last Admin: 03/11/20 08:41 Dose: 75 mg Documented by: Docusate Sodium (Colace) 100 mg PO DAILY PRN PRN Reason: Constipation Enoxaparin Sodium (Lovenox) 40 mg SUBCUT DAILY [facility] Fluticasone Propionate (Flonase) 0 gm NASBOTH DAILY [facility] Last Admin: 03/11/20 08:34 Dose: 2 spray Documented by: Furosemide (Lasix) 80 mg PO Q48H [facility] Last Admin: 03/11/20 08:39 Dose: 80 mg Documented by: Sodium Chloride (Normal Saline) 100 mls @ 200 mls/hr IV ASDIRECTED [facility] Last Admin: 03/10/20 09:45 Dose: 200 mls/hr Documented by: Piperacillin Sod/Tazobactam (Sod 3.375 gm/ Sodium Chloride) 100 mls @ 200 mls/hr IV Q6H [facility] Vancomycin HCl 1.5 gm/ Sodium (Chloride) 250 mls @ 100 mls/hr IV Q24H [facility] Lisinopril (Prinivil) 40 mg PO DAILY [facility] Last Admin: 03/11/20 08:39 Dose: 40 mg Documented by: Menthol (Dorset Sugar Free) 1 car PO ASDIRECTED PRN PRN Reason: Cough Last Admin: 03/09/20 09:54 Dose: 1 car Documented by: Mometasone Furoate/Formoterol Fumar (Dulera 200-5 Mcg) 2 puff IH BID [facility] Last Admin: 03/11/20 20:44 Dose: 2 puff Documented by: Multivitamins/Minerals (Centrum) 1 tab PO DAILY [facility] Last Admin: 03/11/20 08:40 Dose: 1 tab Documented by: Albuterol/Ipratropium [ Combivent Respimat] Inh Own Med 1 puff INH Q4HR PRN PRN Reason: Shortness of Breath Last Admin: 03/10/20 12:24 Dose: 1 puff Documented by: Nystatin (Nystop) 0 gm TOP BID [facility] Last Admin: 03/11/20 20:44 Dose: 1 applic Documented by: Ondansetron HCl (Zofran Odt) 4 mg PO Q6H PRN PRN Reason: Nausea/Vomiting Polyethylene Glycol (Miralax) 17 gm PO DAILY PRN PRN Reason: Constipation Rosuvastatin Calcium (Crestor) 10 mg PO DAILY [facility] Last Admin: 03/11/20 08:41 Dose: 10 mg Documented by: Tramadol HCl (Ultram) 50 mg PO TID PRN PRN Reason: Pain Vancomycin HCl (Pharmacy To Dose - Vancomycin) 1 dose .XX ASDIRECTED [facility] Discontinued Medications Hydrocodone Bitart/Acetaminophen ([place] 325-10 Mg) 1 tab PO Q6HR [facility] Aspirin (Aspirin) 324 mg PO ONETIME ONE Stop: 03/08/20 16:50 Last Admin: 03/08/20 16:50 Dose: 324 mg Documented by: Aspirin (Aspirin) Confirm Administered Dose 324 mg .ROUTE .STK-MED ONE Stop: 03/08/20 16:51 Last Admin: 03/08/20 17:10 Dose: Not Given Documented by: Atropine Sulfate (Atropine 0.1 Mg/Ml) 0.5 - 1 mg IVPUSH ASDIRECTED PRN PRN Reason: Heart. Ceftriaxone Sodium (Rocephin) 1 gm IVPUSH Q24H [facility] Last Admin: 03/11/20 16:08 Dose: 1 gm Documented by: Enoxaparin Sodium (Lovenox) 40 mg SUBCUT Q12H [facility] Last Admin: 03/11/20 10:19 Dose: 40 mg Documented by: Epinephrine HCl (Epinephrine 1:10,000) 1 mg IVPUSH ASDIRECTED PRN PRN Reason: Heart. Sodium Chloride (Normal Saline) 1,000 mls @ 125 mls/hr IV ASDIRECTED [facility] Last Admin: 03/11/20 05:13 Dose: 125 mls/hr Documented by: Azithromycin 500 mg/ Sodium (Chloride) 250 mls @ 250 mls/hr IV Q24H [facility] Last Admin: 03/11/20 16:10 Dose: 250 mls/hr Documented by: Ibuprofen (Motrin) 600 mg PO ONETIME ONE Stop: 03/11/20 17:32 Last Admin: 03/11/20 17:58 Dose: 600 mg Documented by: Iopamidol (Isovue-370 (76%)) 100 ml IV ONETIME ONE Stop: 03/10/20 09:53 Last Admin: 03/10/20 09:45 Dose: 100 ml Documented by: Lidocaine HCl (Xylocaine 2%) 120 - 180 mg IVPUSH ASDIRECTED PRN PRN Reason: Heart. Nitroglycerin (Nitrostat) 0.4 mg SL ASDIRECTED PRN PRN Reason: Heart. - Exam Quality Assessment: Supplemental Oxygen General: Alert, Oriented, Cooperative, No Acute Distress Lungs: Normal Respiratory Effort, Crackles (Right upper lung field), Wheezing Cardiovascular: Regular Rate, Regular Rhythm, Murmurs GI/Abdominal Exam: Normal Bowel Sounds, Soft, Non-Tender Extremities: No Pedal Edema Sepsis Event Note - Evaluation Sepsis Screening Result: Sepsis Risk - Focused Exam Vital Signs: Vital Signs Temp Temp Pulse Resp BP BP Pulse Ox 03/12/20 06:08 100.3 F 69 24 H 128/50 L 95 03/12/20 05:00 100.4 F 03/12/20 03:15 100 F 03/12/20 03:00 100.0 F 80 22 H 116/56 L 97 03/11/20 22:55 97.0 F 57 L 20 118/47 L 92 L - Problem List Review Problem List Initiated/Reviewed/Updated: Yes - My Orders Last 24 Hours: My Active Orders 03/11/20 17:32 Blood Culture x2 Reflex Set [OM.PC] Stat 03/11/20 18:10 CULTURE BLOOD [BC] Stat 03/11/20 18:25 CULTURE BLOOD [BC] Stat 03/12/20 08:00 PROCALCITONIN [REF] Routine 03/12/20 09:00 Enoxaparin [Lovenox] 40 mg SUBCUT DAILY Pharmacy to Dose - Vancomycin 1 dose .XX ASDIRECTED Piperacillin/Tazobactam [Zosyn] 3.375 gm Sodium Chloride 0.9% [Normal Saline] 100 ml IV Q6H 03/12/20 09:30 Vancomycin 1.5 gm Sodium Chloride 0.9% [Normal Saline] 250 ml IV Q24H 03/13/20 05:11 BASIC METABOLIC PANEL,BMP [CHEM] AM CBC WITH AUTO DIFF [HEME] AM 03/14/20 05:11 BASIC METABOLIC PANEL,BMP [CHEM] AM CBC WITH AUTO DIFF [HEME] AM 03/15/20 05:11 BASIC METABOLIC PANEL,BMP [CHEM] AM CBC WITH AUTO DIFF [HEME] AM 03/15/20 09:00 VANCOMYCIN TROUGH [CHEM] Routine 03/16/20 05:11 BASIC METABOLIC PANEL,BMP [CHEM] AM CBC WITH AUTO DIFF [HEME] AM - Assessment Assessment:: Admission Diagnoses: Weakness - Has home health with PT/OT - Strong consideration of NH placement per patient request - 03/10/2020 PT consultation Fever - Documented 03/10 at 0300, blood culture x 2 ordered, WBC normal with new mild left shift 03/12, no obvious sign of infection - Repeat blood cultures 03/11 - Will start incentive spirometry 03/10 - CT with ground glass opacities bilaterally - Started Azithromycin 500 mg IV daily and ceftriaxone 1 gram IV daily on 03/10 - 03/12 d/c azithromycin and ceftriaxone as no response, 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 - COVID testing 03/11 negative, given persistent fever and CT findings will repeat COVID testing and send to the state Dehydration - NS will increase today from 75 mL/hr to 125 mL/hr (03/09) - Daily BMP - 03/11/2020 D/C IVF's. 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 [facility] - Plavix x total of 3 months per cardiology Nausea - Start ondansetron ODT 4 mg PO q 6 hours PRN (03/09) Fever - Documented 03/10 at 0300, blood culture x 2 ordered, WBC normal with no left shift, no obvious sign of infection - Will start incentive spirometry Chronic Diagnoses: Asthma - Continue albuterol inhaler COPD - Continue Advair - Continue Combivent HTN - Continue amlodipine - Continue lisinopril Obesity DM2, diet controlled - Will get A1C to have for baseline, 5.7, no indication for starting diabetic meds at this time Allergic Rhinitis - Continue flonase - Continue ipratropium bromide nasal spray Peripheral edema - Furosemide 40 mg PO daily (he had been on 80 mg PO daily but with dehydration this was decreased to 40 mg on 03/07) Osteoarthritis - Hydrocodone PRN for severe pain Hyperlipidemia - Continue rosuvastatin Anemia of chronic disease
[2020-03-12] MEDS: Allopurinol 100 MG Tab PO SCH (09:48)
[2020-03-12] MEDS: amLODIPine 5 MG Tab PO SCH (09:48)
[2020-03-12] MEDS: Rosuvastatin 10 MG Tab PO SCH (09:48)
[2020-03-12] MEDS: Clopidogrel 75 MG Tab PO SCH (09:48)
[2020-03-12] MEDS: Formoterol/Mometasone 200-5 MCG 8.8 GM Inhaler IH SCH ×2 (09:49→20:43)
[2020-03-12] MEDS: Fluticasone Propionate Nasal Spray 16 GM Bottle NASBOTH SCH (09:49)
[2020-03-12] MEDS: Nystatin Topical Powder 15 GM Bottle TOP SCH ×2 (09:51→20:43)
[2020-03-12] MEDS: Enoxaparin 40 MG/0.4 ML Syringe SUBCUT SCH (09:51)
[2020-03-12] MEDS: Sodium Chloride 0.9% 250 ML IV SCH (09:59)
[2020-03-12] MEDS: Piperacillin/Tazobactam 3.375 GM in Sodium Chloride 0.9% 100 ML IV SCH ×2 (13:40→19:22)
[2020-03-12] MEDS: IPRATROPIUM INH PRN (15:41)
[2020-03-12] MEDS: ALBUTEROL INH PRN (15:41)
[2020-03-13] MEDS: Piperacillin/Tazobactam 3.375 GM in Sodium Chloride 0.9% 100 ML IV SCH ×2 (01:20→06:14)
[2020-03-13] MEDS: Acetaminophen 325 MG Tab PO PRN (06:02)
[2020-03-13 08:21] LABS: ANION GAP 12.6 mmol/L (5-15)
[2020-03-13] MEDS: Fluticasone Propionate Nasal Spray 16 GM Bottle NASBOTH SCH (08:37)
[2020-03-13] MEDS: Rosuvastatin 10 MG Tab PO SCH (08:38)
[2020-03-13] MEDS: Enoxaparin 40 MG/0.4 ML Syringe SUBCUT SCH (08:38)
[2020-03-13] MEDS: Formoterol/Mometasone 200-5 MCG 8.8 GM Inhaler IH SCH (08:38)
[2020-03-13] MEDS: Lisinopril 20 MG Tab PO SCH (08:39)
[2020-03-13] MEDS: Furosemide 40 MG Tab PO SCH (08:39)
[2020-03-13] MEDS: Clopidogrel 75 MG Tab PO SCH (08:39)
[2020-03-13] MEDS: Allopurinol 100 MG Tab PO SCH (08:39)
[2020-03-13] MEDS: Multivitamins with Minerals/Iron/Folic Acid/Lycopene Tab PO SCH (08:42)
[2020-03-13] MEDS: amLODIPine 5 MG Tab PO SCH (08:42)
[2020-03-13] MEDS: Aspirin 81 MG Tab.EC PO SCH (08:42)
[2020-03-13] MEDS: Nystatin Topical Powder 15 GM Bottle TOP SCH (08:46)
[2020-03-13] MEDS: Sodium Chloride 0.9% 250 ML IV SCH (09:45)
[2020-03-13 11:10] VITALS: BP 120/35; PULSE 59
[2020-03-13] MEDS ORDERED: Piperacillin/Tazobactam/Dext 3.375 GM in Premix Bag 1 BAG IV SCH (13:15)
--- NOTE | 2020-03-13 15:21 | DISCH ---
HISTORY OF PRESENT ILLNESS: This is an 89-year-old male who has been hospitalized since 03/08. He came into the emergency room with complaints of shortness of breath, weakness, dehydration secondary to poor intake and diarrhea. The patient has a history of a TAVR, which is a transcatheter aortic valve replacement on 02/11 at [place] in [place]. The patient has been running a fever and spikes up to 102.4. He initially was treated with Rocephin and azithromycin, which was later changed to Zosyn and vancomycin. Despite 48 hours of the Zosyn and vancomycin combination, the patient has continued to spike temps. Hemodynamically, otherwise he is stable. He has had two rapid COVID testing results in this facility. One is still pending at the [facility]. CT of the chest did show patchy bilateral infiltrate, which was consistent with COVID pneumonia. However, the patient was negative twice for COVID. The patient had a UA in the emergency room, which was negative for infection. Blood cultures have been drawn x2 on two separate occasions and have had no growth. The patient does have some renal insufficiency and this has improved since being in the emergency room. His creatinine in the emergency room was 1.71 and a BUN of 54. Today his creatinine is 1.29 and BUN is 21. He did have an elevated D- dimer of over 5000, but was negative for PE. He is on PE prophylaxis with enoxaparin. He is also on Plavix due to his recent TAVR. The patient has been eating well. He reports feeling somewhat short of breath. He did have some audible wheezing without a stethoscope today. However, this cleared when I auscultated his lungs. Significant lab data from today. He does have a low white blood cell count of 4.8. RBCs are low at 2.81. Hemoglobin is low at 8.4. Platelet count was normal at 172,000. Chemistry panel showed a normal sodium of 143. Potassium 3.5. BUN and creatinine as previously stated are 21 and 1.29. This is improved. His glucose is 108. Calcium is 7.6. He did have a procalcitonin drawn and was 0.21. The concern is that he keeps spiking temps through very broad-spectrum and potent antibiotics. We are unable to identify a source of infection. I am concerned that there may be cardiac valvular involvement/infection due to the fact that the patient continues to have breakthrough fevers. PHYSICAL EXAMINATION: VITAL SIGNS: Temp is 98.5, pulse is 59, respirations 24, blood pressure 120/35. O2 saturation is 94% on 2 L of oxygen. SKIN: Warm and dry to touch. CARDIAC: Reveals S1, S2 to be normal. Rate and rhythm are regular. No murmur, click, or gallop is auscultated. LUNGS: When I walked in the room, I did hear some expiratory wheezes. However, when I auscultated his lungs, they were clear. ABDOMEN: Soft, obese, nontender. Bowel sounds present in all four quadrants. EXTREMITIES: There is slight pedal edema. IMPRESSION: 1. Persistent fever spikes despite broad-spectrum antibiotics. I did call one call at [place] and talked to director patient accounting, Dr. Barney who recommended I discuss this case with Infectious Disease. There is no doubt in my mind that the patient needs an Infectious Disease consultation. However, I also feel as though he needs to have a transesophageal echocardiogram to check his aortic valve for infection. I requested hospitalist consultation for transfer and was transferred and discussed this case in detail with Dr. Guillen. He accepted the patient in transfer and agreed totally that the cardiac valve was most likely the culprit for the fevers. The patient was transferred by [facility] ambulance to [place] for direct admission. 2. Dehydration. This has improved. 3. Renal insufficiency. This is improved as well. 4. Elevated D-dimer. PE ruled out. 5. COVID testing rapidly in this facility x2 negative, state test still pending. 6. Recent TAVR putting him at risk for valvular infection. He is on Plavix post TAVR. 7. DVT prophylaxis. In addition to Plavix, he is on enoxaparin. He is also on aspirin therapy. 8. Hypertension. He is on amlodipine as well as lisinopril. 9. Hypercholesterolemia. He is on rosuvastatin. 10.Congestive heart failure. He has been receiving furosemide every 48 hours. This appears stable. 11.Gout. On allopurinol. I will be interested to learn what the underlying cause of this patient's fevers were. I have discussed this case in detail with Dr. Sophia Ortega, who has been managing this patient up until this time. /[id number]/MODL
== END 2020-03-13 13:00 | DRG 683 ==
LOC: KA.ED 15:28 → KA.MS 18:29 → UNDOADMIN 18:30 → KA.MS 18:30
PROVIDERS: ADMIT Physician Assistant; ATTEND Internal Medicine
DX: R53.1 Weakness (principal); N17.9 Acute kidney failure, unspecified; I13.0 Hypertensive heart and chronic kidney disease with heart failure and stage 1 through stage 4 chronic kidney disease, or unspecified chronic kidney disease; J44.9 Chronic obstructive pulmonary disease, unspecified; Z95.4 Presence of other heart-valve replacement; Z68.41 Body mass index [BMI] 40.0-44.9, adult; J44.0 Chronic obstructive pulmonary disease with (acute) lower respiratory infection; I12.9 Hypertensive chronic kidney disease with stage 1 through stage 4 chronic kidney disease, or unspecified chronic kidney disease; E86.0 Dehydration; R77.8 Other specified abnormalities of plasma proteins; N18.9 Chronic kidney disease, unspecified; E66.9 Obesity, unspecified; J30.9 Allergic rhinitis, unspecified; M19.90 Unspecified osteoarthritis, unspecified site; E78.5 Hyperlipidemia, unspecified; D63.1 Anemia in chronic kidney disease; Z20.828 Contact with and (suspected) exposure to other viral communicable diseases; R19.7 Diarrhea, unspecified; R79.1 Abnormal coagulation profile; E78.00 Pure hypercholesterolemia, unspecified; G47.30 Sleep apnea, unspecified; M10.9 Gout, unspecified; E11.22 Type 2 diabetes mellitus with diabetic chronic kidney disease; Z79.82 Long term (current) use of aspirin; Z95.2 Presence of prosthetic heart valve; Z79.899 Other long term (current) drug therapy; Z79.02 Long term (current) use of antithrombotics/antiplatelets
CPT/HCPCS: 36415; 71045; 80053; 81001; 83605; 83880; 84484; 85025; 85379; 87804 ×2; 93005; 99285; A9270; J7030; U0002; 71275; 80048; 82962; 83036; 84145; 87040; 94640; 97110-GP; 97162-GP; 99223; J0456; J0696; J1650; J2543; J3370; J7050; Q9967